=== PATIENT | female | born 1970 | race Caucasian/White ===

== ENCOUNTER 2017-03-06 21:30 | Inpatient (IN) ==
[2017-03-07] MEDS ORDERED: Naloxone 0.4 MG/ML INJ IVP PRN ×2 (00:09→00:10)
[2017-03-07] MEDS ORDERED: Ondansetron ODT 4 MG TAB.RAPDIS SL PRN (00:10)
[2017-03-07] MEDS ORDERED: Acetaminophen 325 MG TABLET PO PRN (00:10)
[2017-03-07 00:45] LABS: Basophils % 0.1 %; Hematocrit 43.5 % (35.3-44.9); Hemoglobin 14.6 g/dL (11.5-15.4); Immature Granulocytes % 0.3 % (0-4); Lymphocytes # 0.9 K/mcL (0.6-4.6); Lymphocytes % 11.8 %; Mean Corpuscular HGB Conc 33.6 g/dL (31.6-35.5); Mean Corpuscular Hemoglobin 32.2 pg (28.0-33.3); Mean Corpuscular Volume 95.8 fL (83.0-100.0); Mean Platelet Volume 8.8 fL (9.4-12.4); Monocytes # 0.4 K/mcL (0.0-1.3); Monocytes % 5.1 %; Neutrophils # 6.4 K/mcL (1.6-8.9); Platelet Count 325 K/mcL (140-400); Red Blood Count 4.54 M/mcL (3.82-4.97); Red Cell Distribution Width 12.8 % (11.5-14.5); Segmented Neutrophils % 82.7 %
[2017-03-07 00:59] LABS: Magnesium 1.7 mg/dL (1.6-2.6); Phosphorous 3.6 mg/dL (2.3-4.7)
[2017-03-07 01:01] LABS: Albumin 3.5 g/dL (3.5-5.0); Bilirubin,Total 0.6 mg/dL (0.2-1.2); Calcium 9.6 mg/dL (8.6-10.8); Globulin 3.6 g/dL (2.4-3.5); Potassium 3.1 mEq/L (3.5-4.5); Total Protein 7.1 g/dL (6.0-8.3)
--- NOTE | 2017-03-07 01:01 | Internal Med History&Physical ---
<Hunter Mora - Last Filed: 03/07/17 03:06> Date of Encounter: 03/07/17 Time of Encounter: 00:30 Assessment and Plan (1) Hypokalemia Current visit: Yes Status: Resolved Patient presented to [place] emergency department was found to have potassium of 2.2. Likely secondary to nausea and vomiting. Patient is a history of hypokalemia and takes oral potassium at home. Review of patient records demonstrates she has had a low of 2.6 in the past with nausea and vomiting. Continuing factors include the patient is taking Lasix at home. Concerning findings demonstrated on EKG with prolongation flattening of the T waves. - Patient has received IV potassium and oral potassium replacement. Plan: - Discontinue Lasix - Stat potassium level - Continue potassium replacement - Repeat EKG in a.m. - Nothing by mouth (2) Tachycardia Current visit: Yes Status: Acute Patient presented to [facility] was found to have an elevated heart rate the EKG performed was read as atrial fibrillation with rapid ventricular rate. After review of the EKG appears to be more of a supraventricular tachycardia. Ms. Figueroa has a history of paroxysmal atrial tachycardia and has been evaluated by cardiology last time of November 2015. For this episode she did receive Cardizem with slowing of her heart rate and she is currently normal sinus rhythm with a flattening and prolongation of the T-wave. - Patient received IV Cardizem resulting in slowing of heart rate. Last echocardiogram from 10/25/2016 demonstrates normal left ventricular systolic function with an LVEF of 60%, atypical septal motion consistent with prior cardiac surgeries. Indeterminant diastolic function normal right ventricular size and function. Mildly dilated right atrium. No significant valvular dysfunction. Plan: - Continue court monitor - Resolved electrolyte imbalance. - IV fluids for rehydration. - EKG in the morning. (3) Dehydration Current visit: Yes Status: Acute Dehydration secondary to nausea and vomiting. Laboratory findings correlate with hypokalemia, decreased chloride and acute kidney injury. Plan: - IV fluid rehydration (4) Acute and chronic respiratory failure Current visit: Yes Status: Acute Patient presents with acute on chronic respiratory failure. Patient has known COPD with her last pulmonary function test and May 2015. At that time her FEV1 was 50% predicted- qualifying for severe COPD. She only uses oxygen nasal cannula at night as needed. - Patient currently requiring 2.5-3 L nasal cane oxygen to maintain oxygen saturations greater than 90%. - Patient has subjective cough, increased sputum production, lethargy, diaphoresis. - Chest x-ray read as left lower lobe pneumonia. Plan: - Ceftriaxone IV - IV rehydration - Nasal cannula oxygen and wean as tolerated - DuoNeb scheduled - Scheduled albuterol nebulizer Qualifiers: Qualified Code(s): J96.20 - Acute and chronic respiratory failure, unspecified whether with hypoxia or hypercapnia (5) Pneumonia Current visit: Yes Status: Acute As mentioned above. Qualifiers: Pneumonia type: due to unspecified organism Laterality: left Lung location: lower lobe of lung Qualified Code(s): J18.1 - Lobar pneumonia, unspecified organism (6) COPD (chronic obstructive pulmonary disease) Current visit: Yes Status: Acute Patient has known COPD. Current daily smoker admits to smoking half a pack of cigarettes per day since the age of 8. 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 Patient has significant family history for lung cancer including her father, sister and grandmother - Patient not on chemotherapy or radiation at this time. (8) Depression Current visit: Yes Status: Chronic Stable, continue medications. Qualifiers: Depression Type: major depressive disorder Major depression recurrence: recurrent Active/Remission status: currently active Major depression episode severity: unspecified Qualified Code(s): F33.9 - Major depressive disorder, recurrent, unspecified (9) DVT prophylaxis Current visit: Yes Status: Acute Subcutaneous Lovenox. Internal Medicine - H&P: HPI Chief complaint: feeling sick Admitted From: Emergency Dept Plans for Post Hospital Care: Home History of present illness: Ms. Figueroa is a 46 year old female presented to [place] emergency department with nausea vomiting, abdominal discomfort and shortness of breath. Ms. Figueroa says that she was not feeling the greatest on Friday with starting to have some coughing lack of appetite. She went to a physician's appointment on Friday but did not mention that she was not feeling well at that time. After leaving the doctor's office she started feeling more nauseous, having episodes of vomiting abdominal discomfort, diaphoretic but no fevers but did have chills. She had frequent coughing with excess sputum reduction. She has felt more short of breath which all of these symptoms have continued and progressed since Friday. She has not found any relief in her symptoms but has tried to drink some Mountain Dew but would vomit it back up. She has not had much water or food intake. She has not tried any new medications. She has been trying to stay compliant with her prescribed medications. She did take her potassium and Lasix this evening. Without improvement in her symptoms she went to the [place] emergency department and was found to have a potassium of 2.2 was provided oral and IV potassium. An EKG was obtained she was found to have a rapid ventricular rates. He was thought to be atrial fibrillation with rapid ventricular rate and she was started on Cardizem. Her heart rate improved and she flipped back into a normal sinus rhythm. A chest x-ray was obtained which demonstrated left lower lobe consolidation concerning for pneumonia. Given her current condition she was transferred to our medical facility for further treatment. Past Med Surg Social Fam HX - Past Medical History Medical history: cancer, COPD, GERD, hypertension, other Psychiatric history: depression - Past Surgical History Surgical History: other - Social History Smoking Status: Current every day smoker Packs per day: 1/2 pack Smokeless Tobacco Status: No Alcohol use: none Drug use: none - Family History Father Living Status: Hx Family Cancer: Yes Hx Family Endocrine Disorder: Yes Mother Living Status: Hx Family Neurologic Disorders: Yes ("brain bleed") Sister Living Status: Hx Family Cancer: Yes Hx Family Neurologic Disorders: Yes (Migraines) Internal Medicine - H&P: Meds Quetiapine Fumarate [Seroquel] 400 mg PO HS 08/10/15 [History] Acetaminophen w/Cod 300-30 mg [Tylenol w/Codeine #3] 1 each PO Q4HR 09/11/16 [ History] Baclofen 20 mg PO TID 09/11/16 [History] Furosemide [Lasix] 20 mg PO QTUTHSA 03/07/17 [History] Allergies Penicillins Adverse Reaction (Verified 09/12/16 02:18) See Comments pt unknown of reaction. states she had a reaction as a child. prednisone Adverse Reaction (Verified 09/12/16 02:18) See Comments pt states it cause her to swell all over. All Systems PM: A 10-system review of systems was performed and is negative for pertinent findings except as documented above in the HPI. - Constitutional Constitutional: chills, excessive sweating, fatigue, night sweats, no fever(s) - EENT Eyes: no change in vision, no discharge, no pain, no photophobia Ears: no ear discharge, no ear pain, no tinnitus Nose, mouth and throat: no dysphagia, no nasal discharge, no neck pain, no sore throat - Cardiovascular Cardiovascular ROS IM: dyspnea, palpitations, no chest pain, no diaphoresis, no lightheadedness, no syncope - Respiratory Respiratory: cough, dyspnea, excessive phlegm production, no wheezing - Gastrointestinal Gastrointestinal: abdominal pain, nausea, vomiting, no diarrhea, no hematemesis , no hematochezia, no melena - Genitourinary Genitourinary: no change in urinary stream, no dysuria, no flank pain, no hematuria - Musculoskeletal Musculoskeletal ROS IM: no numbness, no tingling - Integumentary Integumentary IM: no rash, no unusual bruising - Neurological Neurological ROS: no confusion, no convulsions, no focal weakness, no numbness, no tingling, no tremor(s) - Hematologic/Lymphatic Hematologic/Lymphatic: no easy bruising - Constitutional Vitals: Temp Pulse Resp BP Pulse Ox 98.4 F 83 18 143/112 99 03/06/17 23:48 03/06/17 23:48 03/06/17 23:48 03/06/17 23:48 03/06/17 23:48 Exam: General: Patient alert, awake, oriented 3, interactive, in no acute distress, cachectic appearing HEENT: Normocephalic, atraumatic, pupils equal reactive to light, nasal cavity patent and open ,oral mucosa dry, neck supple trachea midline no palpable lymphadenopathy, no thyromegaly. Chest: Symmetric bilateral correlating with respiratory effort, effort nonlabored. Cardiac: Regular rate and rhythm, positive S1 and loud S2. no bruits appreciated bilateral carotids, Radial pulses 2+ bilateral, posterior tibial and dorsal pedal pulses 2+ bilateral. Respiratory: Reduced bronchovesicular breath sounds, mild crackles in left lower lung base and expiratory wheeze diffusely Abdomen: Soft, mild tenderness to palpation epigastric region, positive bowel sounds, no palpable masses appreciated on examination Extremities: Symmetric bilateral, bilateral lower extremities without erythema or edema patient moving all 4 extremities spontaneously. Neurologic: No focal deficits appreciated on examination. Face symmetric, muscle strength symmetric bilateral upper and lower extremities. Internal Med - H&P Results - Labs CBC & Chem 7: 03/07/17 00:35 03/07/17 00:35 Labs: Short CBC 03/07/17 Range/Units 00:35 WBC 7.8 (4.3-11.1) K/mcL Hgb 14.6 (11.5-15.4) g/dL Hct 43.5 (35.3-44.9) % Plt Count 325 (140-400) K/mcL Neutrophils # 6.4 (1.6-8.9) K/mcL <Chay Avery - Last Filed: 03/07/17 04:49> Date of Encounter: 03/07/17 Internal Medicine - H&P: HPI History of present illness: Ms. Figueroa is a 46 year old female Past Med Surg Social Fam HX - Past Surgical History Surgical History: other (VATS with lung resection, right upper lobe) All Systems PM: A 10-system review of systems was performed and is negative for pertinent findings except as documented above in the HPI. - Constitutional Vitals: Temp Pulse Resp BP Pulse Ox 97.7 F 88 16 127/102 97 03/07/17 03:31 03/07/17 03:31 03/07/17 03:31 03/07/17 03:31 03/07/17 03:31 Internal Med - H&P Results - Labs CBC & Chem 7: 03/07/17 00:35 03/07/17 00:35 Labs: Short CBC 03/07/17 Range/Units 00:35 WBC 7.8 (4.3-11.1) K/mcL Hgb 14.6 (11.5-15.4) g/dL Hct 43.5 (35.3-44.9) % Plt Count 325 (140-400) K/mcL Neutrophils # 6.4 (1.6-8.9) K/mcL BMP 03/07/17 00:35 Sodium 137 Potassium 3.1 L Chloride 87 L Carbon Dioxide 36 H BUN 25 H Creatinine 1.21 H Glucose 187 H Calcium 9.6 Liver Function 03/07/17 Range/Units 00:35 Total Bilirubin 0.6 (0.2-1.2) mg/dL AST 16 (5-34) Units/L ALT 8 (0-55) Units/L Alkaline Phosphatase 107 (38-126) Units/L Albumin 3.5 (3.5-5.0) g/dL - Diagnostic Studies Chest x-ray Status: image reviewed by me - Attending Attestation I personally interviewed and examined this patient and my medical decision- making was reviewed with the Resident Physician. I agree with the documented findings, disposition and treatment plan as described except that I am not convinced that patient has a pneumonia as reported by the [facility] official report, patient most likely has an acute bronchitis with a viral etiology which is causing an associated gastroenteritis with hypokalemia, in any case we will check procalcitonin and if elevated we will consider Abx. Chay Avery MD, MPH Hospitalist
[2017-03-07] MEDS: 0.9 % Sodium Chloride 1,000 ML IVC SCH ×3 (01:05→21:05)
[2017-03-07] MEDS ORDERED: Metoclopramide 10 MG/2 ML VIAL IVP PRN (02:31)
[2017-03-07] MEDS: Baclofen 10 MG TABLET PO SCH ×4 (03:08→21:05)
[2017-03-07] MEDS ORDERED: Ipratropium/Albuterol Neb 3 ML IH PRN ×2 (03:39→09:36)
[2017-03-07] MEDS ORDERED: Albuterol 2.5 MG/3 ML NEBULIZER IH PRN (03:39)
[2017-03-07] MEDS: *HR* Enoxaparin 40 MG/0.4 ML SYRINGE SQ SCH (05:49)
[2017-03-07] MEDS: *HR* Acetaminophen w/Cod 300-30 mg 1 TAB TABLET PO SCH ×6 (05:49→23:29)
[2017-03-07] MEDS: Ondansetron 4 MG/2 ML VIAL IVP SCH ×4 (05:50→23:22)
[2017-03-07 08:39] LABS: Basophils % 0.1 %; Hematocrit 41.3 % (35.3-44.9); Hemoglobin 13.3 g/dL (11.5-15.4); Immature Granulocytes % 0.3 % (0-4); Lymphocytes # 1.4 K/mcL (0.6-4.6); Lymphocytes % 15.4 %; Mean Corpuscular HGB Conc 32.2 g/dL (31.6-35.5); Mean Corpuscular Hemoglobin 31.1 pg (28.0-33.3); Mean Corpuscular Volume 96.7 fL (83.0-100.0); Monocytes # 0.7 K/mcL (0.0-1.3); Monocytes % 8.1 %; Platelet Count 304 K/mcL (140-400); Red Blood Count 4.27 M/mcL (3.82-4.97); Segmented Neutrophils % 76.1 %
[2017-03-07 08:50] LABS: BUN/Creatinine Ratio 23 (6-26); Blood Urea Nitrogen 22 mg/dL (7-20); Calcium 9.3 mg/dL (8.6-10.8); Carbon Dioxide 38 mEq/L (19-29); Chloride 89 mEq/L (98-109); Glucose 117 mg/dL (70-99); Osmolality,Calculated 288 (280-300); Phosphorous 3.1 mg/dL (2.3-4.7); Potassium 3.2 mEq/L (3.5-4.5); Sodium 137 mEq/L (136-145); eGFR For African Americans > 60 (> 60); eGFR For Non-African Americans > 60 (> 60)
[2017-03-07] MEDS: Levofloxacin 750 MG/150 ML 750 MG/150 ML BAG IVPB SCH (09:13)
--- NOTE | 2017-03-07 09:41 | Event Note ---
Date of Encounter: 03/07/17 Time of Encounter: 09:15 Patient is a 46y/o female with PMH Of COPD on LTOT, HTN, GERD who is admitted for hypokalemia, acute respiratory distress secondary to PNA. Patient seen and examined at bedside. Reports of feeling better compared to previous day but states she still feels weak. Currently saturating well on nasal cannula. Requesting breathing treatment. Patient reports of being an every day smoker and is not ready to quit at this time. Refused nicotine replacement therapy. -Hypokalemia: will supplement K and monitor electrolytes -LLL PNA: started Levofloxacin 750mg IV qdaily, f/u blood cultures. O2 supplementation, bronchodilator support -MADAI resolved -Vitals within acceptable range
[2017-03-07] MEDS: Ipratropium/Albuterol Neb 3 ML IH SCH ×5 (11:08→23:31)
[2017-03-08] MEDS: *HR* Acetaminophen w/Cod 300-30 mg 1 TAB TABLET PO SCH ×5 (04:08→21:13)
[2017-03-08] MEDS: Ipratropium/Albuterol Neb 3 ML IH SCH ×6 (04:12→23:25)
[2017-03-08] MEDS: *HR* Enoxaparin 40 MG/0.4 ML SYRINGE SQ SCH (05:20)
[2017-03-08] MEDS: Ondansetron 4 MG/2 ML VIAL IVP SCH ×3 (05:21→18:57)
[2017-03-08 06:06] LABS: Basophils % 0.4 %; Eosinophils % 0.7 %; Hematocrit 31.6 % (35.3-44.9); Immature Granulocytes % 0.2 % (0-4); Lymphocytes # 1.7 K/mcL (0.6-4.6); Lymphocytes % 31.5 %; Mean Corpuscular HGB Conc 31.6 g/dL (31.6-35.5); Mean Corpuscular Hemoglobin 32.5 pg (28.0-33.3); Mean Corpuscular Volume 102.6 fL (83.0-100.0); Mean Platelet Volume 9.1 fL (9.4-12.4); Monocytes # 0.5 K/mcL (0.0-1.3); Monocytes % 8.6 %; Neutrophils # 3.2 K/mcL (1.6-8.9); Platelet Count 230 K/mcL (140-400); Red Blood Count 3.08 M/mcL (3.82-4.97); Red Cell Distribution Width 13.2 % (11.5-14.5); Segmented Neutrophils % 58.6 %
[2017-03-08 06:28] LABS: BUN/Creatinine Ratio 15 (6-26); Blood Urea Nitrogen 13 mg/dL (7-20); Calcium 8.2 mg/dL (8.6-10.8); Carbon Dioxide 32 mEq/L (19-29); Chloride 104 mEq/L (98-109); Glucose 135 mg/dL (70-99); Osmolality,Calculated 288 (280-300); Phosphorous 2.3 mg/dL (2.3-4.7); Sodium 138 mEq/L (136-145); eGFR For African Americans > 60 (> 60); eGFR For Non-African Americans > 60 (> 60)
[2017-03-08] MEDS: 0.9 % Sodium Chloride 1,000 ML IVC SCH (07:02)
[2017-03-08] MEDS ORDERED: Potassium Chloride 40 MEQ, Lidocaine 1% 2 ML in D5% in Water 500 ML IVPB ONE (07:50)
[2017-03-08] MEDS ORDERED: Magnesium Sulfate 2 GM in D5% in Water 100 ML IVPB ONE (07:51)
[2017-03-08] MEDS: Baclofen 10 MG TABLET PO SCH ×3 (10:04→21:20)
--- NOTE | 2017-03-08 12:19 | Internal Med Progress Note ---
Date of Encounter: 03/08/17 Time of Encounter: 12:10 - Assessment and plan (1) Acute and chronic respiratory failure Current Visit: Yes Status: Acute Assessment and plan: Secondary to LLL PNA continue IV abx f/u blood and sputum cultures O2 supplementation monitor O2 sat, goal O2 sat: 89-92% Mucinex prn cough Qualifiers: Respiratory failure complication: unspecified whether with hypoxia or hypercapnia Qualified Code(s): J96.20 - Acute and chronic respiratory failure , unspecified whether with hypoxia or hypercapnia (2) Pneumonia Current Visit: Yes Status: Acute Assessment and plan: as listed above Qualifiers: Pneumonia type: due to unspecified organism Laterality: left Lung location: lower lobe of lung Qualified Code(s): J18.1 - Lobar pneumonia, unspecified organism (3) Electrolyte abnormality Current Visit: Yes Status: Acute Assessment and plan: Hypokalemia and Hypomagnesemia K and Mg supplemented will continue to monitor electrolytes and replace as needed (4) Tobacco abuse Current Visit: Yes Status: Acute Assessment and plan: smoking cessation counseling provided patient not ready to quit at this time refused nicotine supplementation (5) COPD (chronic obstructive pulmonary disease) Current Visit: Yes Status: Acute Assessment and plan: not in acute exacerbation continue bronchodilator support as needed Qualifiers: COPD type: unspecified COPD Qualified Code(s): J44.9 - Chronic obstructive pulmonary disease, unspecified (6) DVT prophylaxis Current Visit: Yes Status: Acute Assessment and plan: Lovenox SQ - Subjective Interval history: Patient seen and examined at bedside. Resting in bed and reports of feeling better compared to previous day. Reports of productive cough. Denies any discomfort at this time. No overnight issues reported. - Constitutional Vitals: Temp Pulse Resp BP Pulse Ox 98.4 F 104 16 114/69 97 03/08/17 11:13 03/08/17 10:15 03/08/17 11:15 03/08/17 11:13 03/08/17 11:15 General appearance: Present: A&O X 3, no acute distress, underweight, answers questions appropriately - Head Head exam: Present: atraumatic, normocephalic - Eye Eye exam: Present: conjuntiva pink, sclera anicteric - Respiratory Respiratory exam: Absent: respiratory distress, wheezes Additional comments: coarse breath sounds diffusely - Cardiovascular Cardiovascular exam: Present: RRR, +S1, +S2. Absent: diastolic murmur, gallop, rubs, systolic murmur - GI/Abdominal GI/Abdominal exam: Present: normal bowel sounds, soft, no peritoneal signs. Absent: distended, tenderness - Extremities Exam Extremities exam: Present: warm, radial pulses palpable and symetrical. Absent : calf tenderness, cyanotic, pedal edema - Neurological Exam Neurological exam: Present: alert, oriented X3 - Psychiatric Psychiatric exam: Present: normal affect, normal mood Internal Medicine: Result - Labs CBC & Chem 7: 03/08/17 05:44 03/08/17 05:44 Labs: Short CBC 03/08/17 Range/Units 05:44 WBC 5.5 (4.3-11.1) K/mcL Hgb 10.0 L D (11.5-15.4) g/dL Hct 31.6 L (35.3-44.9) % Plt Count 230 (140-400) K/mcL Neutrophils # 3.2 (1.6-8.9) K/mcL BMP 03/08/17 05:44 Sodium 138 Potassium 3.0 L Chloride 104 D Carbon Dioxide 32 H BUN 13 Creatinine 0.86 Glucose 135 H Calcium 8.2 L Consult Discharge Plan - Plan Referrals: Daljit Auguste, [employer] [Primary Care Provider] -
[2017-03-08] MEDS ORDERED: GuaiFENesin/Dextromethorphan TABLET PO PRN (12:20)
[2017-03-08] MEDS ORDERED: Nitroglycerin 0.4 MG TAB.SUBL SL PRN (14:06)
[2017-03-08] MEDS ORDERED: *HR* Heparin 5,000 UNIT/ML VIAL IVP PRN ×2 (14:07)
[2017-03-08] MEDS ORDERED: *HR* Heparin 5,000 UNIT/ML VIAL IVP ONE (14:07)
[2017-03-08 14:16] LABS: Hemoglobin 11.3 g/dL (11.5-15.4); Mean Corpuscular HGB Conc 30.5 g/dL (31.6-35.5); Mean Corpuscular Hemoglobin 31.7 pg (28.0-33.3); Mean Corpuscular Volume 103.9 fL (83.0-100.0); Mean Platelet Volume 9.3 fL (9.4-12.4); Platelet Count 276 K/mcL (140-400); Red Blood Count 3.56 M/mcL (3.82-4.97); Red Cell Distribution Width 13.3 % (11.5-14.5)
[2017-03-08 14:26] LABS: Activated Partial Thrombo Time 37.6 Seconds (26.0-36.0)
[2017-03-08] MEDS: Aspirin Enteric Coated 325 MG Tablet PO SCH (14:48)
[2017-03-08] MEDS: Heparin 25,000 UNIT/500 ML D5W 25,000 UNIT/500 ML MLS IVC SCH (16:08)
[2017-03-08] MEDS: *HR* Morphine 2 MG/ML SYRINGE IVP PRN ×2 (16:35→19:25)
[2017-03-09] MEDS: Ondansetron 4 MG/2 ML VIAL IVP SCH ×2 (01:02→05:39)
[2017-03-09] MEDS: *HR* Acetaminophen w/Cod 300-30 mg 1 TAB TABLET PO SCH ×3 (01:02→08:50)
[2017-03-09] MEDS: Ipratropium/Albuterol Neb 3 ML IH SCH ×6 (03:59→23:18)
[2017-03-09 04:25] LABS: Basophils % 0.3 %; Eosinophils # 0.1 K/mcL (0.0-0.6); Hematocrit 33.5 % (35.3-44.9); Hemoglobin 10.3 g/dL (11.5-15.4); Immature Granulocytes % 0.3 % (0-4); Lymphocytes # 1.9 K/mcL (0.6-4.6); Lymphocytes % 27.4 %; Mean Corpuscular HGB Conc 30.7 g/dL (31.6-35.5); Mean Corpuscular Hemoglobin 31.6 pg (28.0-33.3); Mean Corpuscular Volume 102.8 fL (83.0-100.0); Mean Platelet Volume 8.9 fL (9.4-12.4); Monocytes # 0.6 K/mcL (0.0-1.3); Monocytes % 8.3 %; Neutrophils # 4.3 K/mcL (1.6-8.9); Platelet Count 235 K/mcL (140-400); Red Blood Count 3.26 M/mcL (3.82-4.97); Red Cell Distribution Width 13.3 % (11.5-14.5); Segmented Neutrophils % 61.7 %
[2017-03-09 04:37] LABS: BUN/Creatinine Ratio 13 (6-26); Blood Urea Nitrogen 9 mg/dL (7-20); Calcium 8.5 mg/dL (8.6-10.8); Carbon Dioxide 33 mEq/L (19-29); Chloride 105 mEq/L (98-109); Glucose 103 mg/dL (70-99); Magnesium 1.5 mg/dL (1.6-2.6); Osmolality,Calculated 289 (280-300); Phosphorous 2.6 mg/dL (2.3-4.7); Potassium 3.1 mEq/L (3.5-4.5); Sodium 140 mEq/L (136-145); eGFR For African Americans > 60 (> 60); eGFR For Non-African Americans > 60 (> 60)
[2017-03-09] MEDS ORDERED: Magnesium Sulfate 1 GM in D5% in Water 100 ML IVPB ONE (08:39)
[2017-03-09] MEDS: Aspirin Enteric Coated 325 MG Tablet PO SCH (09:01)
[2017-03-09] MEDS: Levofloxacin 750 MG/150 ML 750 MG/150 ML BAG IVPB SCH (09:01)
[2017-03-09] MEDS: Baclofen 10 MG TABLET PO SCH ×3 (09:01→20:57)
[2017-03-09] MEDS: *HR* Morphine 2 MG/ML SYRINGE IVP PRN (09:55)
[2017-03-09] MEDS ORDERED: Ondansetron 4 MG/2 ML VIAL IVP PRN (10:04)
--- NOTE | 2017-03-09 10:26 | Internal Med Progress Note ---
Date of Encounter: 03/09/17 Time of Encounter: 10:26 - Assessment and plan (1) Acute pulmonary embolism Current Visit: Yes Status: Acute Assessment and plan: CTA chest consistent with right lower lobe segmental PE will continue heparin gtt elevated TNI secondary to acute PE awaiting 2D echo and b/l LE venous doppler will obtain cardiology consultation depending on the echo results currently pain appropriately controlled and saturating well on nasal cannula hematology consultation requested for emt intermediate anticoagulation therapy patient reports history of blood clots with her family members and has a history of lupus (unclear of the lupus variant) Qualifiers: Pulmonary embolism type: other Acute cor pulmonale presence: without acute cor pulmonale Qualified Code(s): I26.99 - Other pulmonary embolism without acute cor pulmonale (2) Acute and chronic respiratory failure Current Visit: Yes Status: Acute Assessment and plan: Secondary to LLL PNA CTA chest reported collapse of left lower lobe possibly secondary to mucous plugging will obtain consultation with respiratory therapy to initiate pulmonary toileting continue IV abx f/u blood and sputum cultures O2 supplementation monitor O2 sat, goal O2 sat: 89-92% Mucinex prn cough will obtain repeat CXR in am clinically improving compared to previous day Qualifiers: Respiratory failure complication: unspecified whether with hypoxia or hypercapnia Qualified Code(s): J96.20 - Acute and chronic respiratory failure , unspecified whether with hypoxia or hypercapnia (3) Pneumonia Current Visit: Yes Status: Acute Assessment and plan: as listed above Qualifiers: Pneumonia type: due to unspecified organism Laterality: left Lung location: lower lobe of lung Qualified Code(s): J18.1 - Lobar pneumonia, unspecified organism (4) Electrolyte abnormality Current Visit: Yes Status: Acute Assessment and plan: Hypokalemia and Hypomagnesemia K and Mg supplemented will continue to monitor electrolytes and replace as needed (5) Tobacco abuse Current Visit: Yes Status: Acute Assessment and plan: smoking cessation counseling provided patient not ready to quit at this time refused nicotine supplementation (6) COPD (chronic obstructive pulmonary disease) Current Visit: Yes Status: Acute Assessment and plan: not in acute exacerbation continue bronchodilator support as needed Qualifiers: COPD type: unspecified COPD Qualified Code(s): J44.9 - Chronic obstructive pulmonary disease, unspecified (7) DVT prophylaxis Current Visit: Yes Status: Acute Assessment and plan: anticoagulated with heparin gtt - Subjective Interval history: Pt seen and examined at bedside. Sitting in bed and reports of feeling better compared to previous day. CTA chest consistent with right lower lobe segmental pulmonary embolism with left lower lobe collapse, possibly secondary to mucous plugging. Reports the pain being better controlled however requesting Percocet rather than the morphine for pain control. HR currently controlled and saturating well on nasal cannula. No overnight issues reported - Constitutional Vitals: Temp Pulse Resp BP Pulse Ox 98 F 80 14 114/74 98 03/09/17 07:54 03/09/17 07:54 03/09/17 07:54 03/09/17 07:54 03/09/17 07:54 General appearance: Present: A&O X 3, no acute distress, underweight, answers questions appropriately - Head Head exam: Present: atraumatic, normocephalic - Eye Eye exam: Present: conjuntiva pink, sclera anicteric - Respiratory Respiratory exam: Absent: respiratory distress, wheezes Additional comments: equal air entry bilaterally - Cardiovascular Cardiovascular exam: Present: RRR, +S1, +S2. Absent: diastolic murmur, gallop, rubs, systolic murmur - GI/Abdominal GI/Abdominal exam: Present: normal bowel sounds, soft, no peritoneal signs. Absent: distended, tenderness - Extremities Exam Extremities exam: Present: warm, radial pulses palpable and symetrical. Absent : calf tenderness, pedal edema - Neurological Exam Neurological exam: Present: alert, oriented X3 - Psychiatric Psychiatric exam: Present: normal affect, normal mood Internal Medicine: Result - Labs CBC & Chem 7: 03/09/17 04:04 03/09/17 04:04 Labs: Short CBC 03/08/17 03/09/17 Range/Units 13:11 04:04 WBC 8.2 7.0 (4.3-11.1) K/mcL Hgb 11.3 L 10.3 L (11.5-15.4) g/dL Hct 37.0 33.5 L (35.3-44.9) % Plt Count 276 235 (140-400) K/mcL Neutrophils # 4.3 (1.6-8.9) K/mcL BMP 03/09/17 04:04 Sodium 140 Potassium 3.1 L Chloride 105 Carbon Dioxide 33 H BUN 9 Creatinine 0.70 Glucose 103 H Calcium 8.5 L Cardiac Enzymes 03/08/17 03/09/17 Range/Units 13:11 04:04 Troponin I 0.33 H* 0.19 H* (0-0.03) ng/mL - ABG Interpretation ABG results: PT/INR, D-dimer PT 11.0 Seconds (9.4-12.1) 03/08/17 13:11 - Impressions Impressions Chest CTA 03/08/17 12:52 IMPRESSION: 1. Right lower lobe segmental pulmonary embolus. RV to LV ratio is within normal range. 2. Left lower lobe collapse, possibly secondary to mucous plugging. 3. Small bilateral pleural effusions with compressive atelectasis of the right lower lobe. Findings were discussed with Nerissa Gary at 3:46 pm on 03/08/2017. D/ / 03/08/2017 15:48:02 Joey Soto MD / ginny Interpreting Provider: Joey Soto MD Consult Discharge Plan - Plan Referrals: Daljit Augutse, [employer] [Primary Care Provider] -
--- NOTE | 2017-03-09 12:44 | Oncology Inp Consult Note ---
Date of Encounter: 03/09/17 Time of Encounter: 12:18 Assessment and Plan (1) Acute pulmonary embolism Status: Acute Assessment and plan: Clinically improving while receiving full anticoagulation with IV heparin. I'd recommend to continue IV heparin and transition to coumadin. I would prefer heparin over lovenox due to the risk of bleeding associated with APS. - In view of her history of positive lupus anticoagulant ( once documented here in 03/03/15, and another reported by the patient, apparently tested last year by her primary freelance operator Dr. 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 Although her current episode of PE seems to be provoked ( in the settings of hospitalization due to LLL PNA), she may need watermaster anticoagulation in view of her positive LAC and possible APS. She will need repeated work up as outpatient ( not here in view that heparin can induce false positive results) while anticoagulated with coumadin. Recommended test included anti cardiolipin ab IgM, IgG; Beta 2 glyoprotein, LAC, APTT, INR. - New oral anticoagulants are not an option in view of her low BMI and possible APS. superintendent container terminal lovenox is not the best option due to low BMI and risk of osteoporosis. She was in agreement to receive coumadin and monitor her blood to keep an INR level between 2-3. She would prefer having her PCP following her INR levels. she was instructed to make an appointment with her primary freelance operator Dr. Hawkins to follow up on those labs and discuss the final recommendations for duration of anticoagulation ( based on my assessment she will need at least 3-6 months of full anticoagulation with coumadin, although this is an area of controversy and alf anticoagulation may be a reasonable option too). - I'd suggest to continue baby asa, but discontinue it down the road if she experiences significant bleeding events. -Ok to discontinue heparin IV once she has completed 5 or more days on heparin AND her INR is 2 or above in 2 consecutive days. Qualifiers: Pulmonary embolism type: other Acute cor pulmonale presence: without acute cor pulmonale Qualified Code(s): I26.99 - Other pulmonary embolism without acute cor pulmonale Code(s): I26.99 - Other pulmonary embolism without acute cor pulmonale SNOMED Code(s): 32556500, 92437167 - Data of Consult Requesting Physician: Nerissa Gary MD Primary Care Provider: Daljit Auguste CNP - Consult Narrative Reason for consult: management of recent PE. Hypercoagulable work up History of present illness: Ms. Figueroa is a 46 year old female with history of positive lupus anticoagulant, COPD, early stage lung cancer s/p right upper lobectomy presenting with abdominal pain, nausea and found to have CXR findings consisting with LLL PNA for which she was stated on broad spectrum IV antibiotics. During the course of he hospitalization she developed sinus tachycardia with HR in the 140s along with pleuritc chest pain while receiving DVT prophylaxis with lovenox SQ. A stat CT chest revealed a segmental PE in the RLL, subsequently she was started on heparin drip. She reports improvement of her symptoms while on full anticoagulation with IV heparin, denies bleeding events. Ms. El reports a personal history of positive lupus anticoagulant. Her work up was initiated back in 2014 when she was found to have a prolonged APTT during the pre surgical evaluation for her lung cancer resection. At that time she was found to have positive lupus anticoagulant, Prolonged APTT in mid 60s, elevated Beta 2 microglobulin IgM ( 13.8 with normal values of Beta 2 glycoprotein of IgG, elevated values of IgM anti cardiolipin antibody IgG ( 24) and IgM ( 34), normal NABEEL. The lab interpretation of her LAC in March 03, 2015 was consistent with the presence of lupus anti coagulant. She reports following up with her freelance operator Dr. Hawkins ( at [facility]) and being recommended to take baby aspirin ( although she endorsed not being 100 percent complaint with that recommendation). She reports a family history of thrombosis : her mother had a clot in her legs in the settings of PVD, and her sister had a clot in her lungs, but as the result of lung cancer.She denies a history of CVA or prior DVT/PT. She reports that she was seen by her oncologist early this year and her lung cancer was thought to be in remission. her CT angio does not report findings suggestive of lung cancer relapse. She denies any recent bleeding events. Past Med Surg Social Fam HX - Past Medical History Medical history: cancer, COPD, GERD, hypertension, other Psychiatric history: depression - Past Surgical History Surgical History: other (VATS with lung resection, right upper lobe) - Social History Smoking Status: Current every day smoker Packs per day: 1/2 pack Smokeless Tobacco Status: No Alcohol use: none Drug use: none - Family History Father Living Status: Hx Family Cancer: Yes Hx Family Endocrine Disorder: Yes Mother Living Status: Hx Family Neurologic Disorders: Yes ("brain bleed") Sister Living Status: Hx Family Cancer: Yes Hx Family Neurologic Disorders: Yes (Migraines) Medications and Allergies Quetiapine Fumarate [Seroquel] 400 mg PO HS 08/10/15 [History] Baclofen 20 mg PO TID 09/11/16 [History] Acetaminophen with Codeine [Acetaminophen-Cod #4 Tablet] 1 tab PO Q4-6H PRN [History] Albuterol Sulfate [Ventolin Hfa] 2 puff IH Q4H PRN 03/07/17 [History] Furosemide [Lasix] 20 mg PO QTUTHSA 03/07/17 [History] Ipratropium/Albuterol Neb [Duoneb] 3 ml IH DAILY PRN 03/07/17 [History] Metoprolol XL (24 HR) Succ [Toprol Xl] 25 mg PO DAILY 03/07/17 [History] Potassium Chloride [Klor-Con 10] 10 meq PO TUTHSA 03/07/17 [History] Allergies Penicillins Adverse Reaction (Verified 03/07/17 08:39) See Comments pt unknown of reaction. states she had a reaction as a child. prednisone Adverse Reaction (Verified 03/07/17 08:39) See Comments pt states it cause her to swell all over. Constitutional: Present: fatigue Cardiovascular: Present: chest pain, dyspnea, rapid heart rate Respiratory: Present: dyspnea, pain on inspiration. Absent: hemoptysis, chest congestion Gastrointestinal: Present: abdominal pain. Absent: hematemesis, hematochezia Neurological: Absent: behavioral changes, lack of coordination, weakness Psychiatric: Absent: behavioral changes Oncology - Exam - Constitutional Vitals: Temp Pulse Resp BP Pulse Ox 98 F 86 16 121/77 94 03/09/17 12:06 03/09/17 12:06 03/09/17 12:06 03/09/17 12:06 03/09/17 12:06 - Head Head exam: Present: normal inspection - ENT ENT exam: Present: normal oropharynx - Neck Neck exam: Present: normal inspection - Respiratory Respiratory exam: Present: CTAB - Cardiovascular Cardiovascular exam: Present: +S1 - GI/Abdominal GI/Abdominal exam: Present: normal bowel sounds. Absent: guarding, mass - Extremities Exam Extremities exam: Present: normal inspection. Absent: tenderness - Neurological Exam Neurological exam: Present: oriented X3. Absent: no focal deficits - Psychiatric Psychiatric exam: Present: normal affect, normal mood - Skin Skin exam: Present: normal color Oncology - Results - Labs Labs: Short CBC 03/08/17 03/09/17 Range/Units 13:11 04:04 WBC 8.2 7.0 (4.3-11.1) K/mcL Hgb 11.3 L 10.3 L (11.5-15.4) g/dL Hct 37.0 33.5 L (35.3-44.9) % Plt Count 276 235 (140-400) K/mcL Neutrophils # 4.3 (1.6-8.9) K/mcL BMP 03/09/17 04:04 Sodium 140 Potassium 3.1 L Chloride 105 Carbon Dioxide 33 H BUN 9 Creatinine 0.70 Glucose 103 H Calcium 8.5 L Cardiac Enzymes 03/08/17 03/09/17 Range/Units 13:11 04:04 Troponin I 0.33 H* 0.19 H* (0-0.03) ng/mL Consult Discharge Plan - Plan Referrals: Daljit Auguste EARLY LEARNING TEACHER [Primary Care Provider] -
[2017-03-09] MEDS: *HR* OxyCODONE/APAP 5/325 TABLET PO PRN ×3 (13:50→23:06)
[2017-03-10] MEDS: Ipratropium/Albuterol Neb 3 ML IH SCH ×6 (03:29→23:37)
[2017-03-10 04:02] LABS: Basophils % 0.3 %; Eosinophils # 0.2 K/mcL (0.0-0.6); Eosinophils % 2.9 %; Hematocrit 30.7 % (35.3-44.9); Hemoglobin 9.2 g/dL (11.5-15.4); Immature Granulocytes % 0.2 % (0-4); Lymphocytes # 1.8 K/mcL (0.6-4.6); Lymphocytes % 26.7 %; Mean Corpuscular Hemoglobin 31.2 pg (28.0-33.3); Mean Corpuscular Volume 104.1 fL (83.0-100.0); Mean Platelet Volume 9.1 fL (9.4-12.4); Monocytes # 0.5 K/mcL (0.0-1.3); Monocytes % 6.9 %; Neutrophils # 4.2 K/mcL (1.6-8.9); Platelet Count 226 K/mcL (140-400); Red Blood Count 2.95 M/mcL (3.82-4.97); Red Cell Distribution Width 13.5 % (11.5-14.5)
[2017-03-10 04:19] LABS: BUN/Creatinine Ratio 18 (6-26); Blood Urea Nitrogen 14 mg/dL (7-20); Calcium 8.9 mg/dL (8.6-10.8); Carbon Dioxide 29 mEq/L (19-29); Chloride 105 mEq/L (98-109); Glucose 108 mg/dL (70-99); Magnesium 1.6 mg/dL (1.6-2.6); Osmolality,Calculated 287 (280-300); Phosphorous 2.7 mg/dL (2.3-4.7); Sodium 138 mEq/L (136-145); eGFR For African Americans > 60 (> 60); eGFR For Non-African Americans > 60 (> 60)
[2017-03-10 04:37] LABS: Potassium 4.2 mEq/L (3.5-4.5)
[2017-03-10] MEDS: *HR* OxyCODONE/APAP 5/325 TABLET PO PRN ×5 (05:00→21:07)
[2017-03-10] MEDS: Aspirin Enteric Coated 325 MG Tablet PO SCH (07:43)
[2017-03-10] MEDS: Baclofen 10 MG TABLET PO SCH ×3 (07:43→21:08)
--- NOTE | 2017-03-10 10:26 | Internal Med Progress Note ---
Date of Encounter: 03/10/17 Time of Encounter: 10:24 - Assessment and plan (1) Acute pulmonary embolism Current Visit: Yes Status: Acute Assessment and plan: CTA chest consistent with right lower lobe segmental PE will continue heparin gtt elevated TNI secondary to acute PE 2D echo: Normal LV systolic function, LVEF of 55%, atypical septal motion consistent with prior cardiac surgery (pt has history of congenital heart disease s/p Cardiac surgery at age 1), no valvular dysfunction reported LE dopplers prelim negative for DVT Hematology evaluation appreciated pt to be started on coumadin and bridge with heparin monitor INR, goal INR: 2-3 Qualifiers: Pulmonary embolism type: other Acute cor pulmonale presence: without acute cor pulmonale Qualified Code(s): I26.99 - Other pulmonary embolism without acute cor pulmonale (2) Acute and chronic respiratory failure Current Visit: Yes Status: Acute Assessment and plan: Secondary to LLL PNA CTA chest reported collapse of left lower lobe possibly secondary to mucous plugging continue pulmonary toileting Prelim blood cultures negative prelmi sputum cultures positive for gram negative omaira will switch to PO Levaquin and renally dose abx. Will change therapy as per culture results O2 supplementation monitor O2 sat, goal O2 sat: 89-92% Mucinex prn cough will follow up repeat CXR clinically improving compared to previous day Qualifiers: Respiratory failure complication: unspecified whether with hypoxia or hypercapnia Qualified Code(s): J96.20 - Acute and chronic respiratory failure , unspecified whether with hypoxia or hypercapnia (3) Pneumonia Current Visit: Yes Status: Acute Assessment and plan: as listed above Qualifiers: Pneumonia type: due to unspecified organism Laterality: left Lung location: lower lobe of lung Qualified Code(s): J18.1 - Lobar pneumonia, unspecified organism (4) Electrolyte abnormality Current Visit: Yes Status: Resolved (5) Tobacco abuse Current Visit: Yes Status: Acute Assessment and plan: smoking cessation counseling provided patient not ready to quit at this time refused nicotine supplementation (6) COPD (chronic obstructive pulmonary disease) Current Visit: Yes Status: Acute Assessment and plan: not in acute exacerbation continue bronchodilator support as needed Qualifiers: COPD type: unspecified COPD Qualified Code(s): J44.9 - Chronic obstructive pulmonary disease, unspecified (7) DVT prophylaxis Current Visit: Yes Status: Acute Assessment and plan: anticoagulated with heparin gtt - Subjective Interval history: Pt seen and examined at bedside. Reports of feeling better. no overnight issues reported - Constitutional Vitals: Temp Pulse Resp BP Pulse Ox 98.3 F 79 18 118/79 95 03/10/17 07:20 03/10/17 07:20 03/10/17 08:06 03/10/17 07:20 03/10/17 08:06 General appearance: Present: A&O X 3, no acute distress, underweight, answers questions appropriately - Head Head exam: Present: atraumatic, normocephalic - Eye Eye exam: Present: conjuntiva pink, sclera anicteric - Respiratory Respiratory exam: Absent: respiratory distress, wheezes - Cardiovascular Cardiovascular exam: Present: RRR, +S1, +S2. Absent: diastolic murmur, gallop, rubs, systolic murmur - GI/Abdominal GI/Abdominal exam: Present: normal bowel sounds, soft, no peritoneal signs. Absent: distended, tenderness - Extremities Exam Extremities exam: Present: warm, radial pulses palpable and symetrical. Absent : calf tenderness, cyanotic, pedal edema - Neurological Exam Neurological exam: Present: alert, oriented X3 - Psychiatric Psychiatric exam: Present: normal affect, normal mood Internal Medicine: Result - Labs CBC & Chem 7: 03/10/17 03:44 03/10/17 03:44 Labs: Short CBC 03/10/17 Range/Units 03:44 WBC 6.7 (4.3-11.1) K/mcL Hgb 9.2 L (11.5-15.4) g/dL Hct 30.7 L (35.3-44.9) % Plt Count 226 (140-400) K/mcL Neutrophils # 4.2 (1.6-8.9) K/mcL BMP 03/10/17 03:44 Sodium 138 Potassium 4.2 D Chloride 105 Carbon Dioxide 29 BUN 14 Creatinine 0.76 Glucose 108 H Calcium 8.9 - ABG Interpretation ABG results: PT/INR, D-dimer PT 11.0 Seconds (9.4-12.1) 03/08/17 13:11 Consult Discharge Plan - Plan Referrals: Daljit Auguste, DIABETES NURSE [Primary Care Provider] -
[2017-03-10 10:28] LABS: Prothrombin Time 11.5 Seconds (9.4-12.1)
[2017-03-10 10:29] LABS: INR 1.1
[2017-03-10] MEDS: Heparin 25,000 UNIT/500 ML D5W 25,000 UNIT/500 ML MLS IVC SCH (11:04)
--- NOTE | 2017-03-10 12:04 | Venous Imaging Report ---
LE Venous Duplex Patient Name:Tamika Figueroa Order Number:[id number] Procedure Date:03/09/2017 Date:1970Age:46 yrs Gender:Female Location:[facility] Room #: 2NE34 Health Evaluator:Marsha Child RVT, RDCS Referring MD:Nerissa Gary MD time stamp assembler:Daljit Auguste, SPECIMEN BOSS Reading MD:Omid Paredes MD , FACS Primary Indications:PE Secondary Indications: Impressions: Bilateral lower extremity: normal superficial and deep exam. Recommendations: Test completed on 03/09/2017 at 11:52:00 am. Critical findings reported to marilu QUINN in person at 11:54:02 am on 03/09/2017 by Marsha Child RVT, RDCS. Findings Venous Duplex Results: Right: Venous imaging of the lower extremity reveals full patency and normal vessel compressibility of the right distal iliac, right common femoral, right superficial femoral, right popliteal, right posterior tibial, right peroneal, right great saphenous and right lesser saphenous. Doppler signals in the evaluated veins were normal. Left: Venous imaging of the lower extremity reveals full patency and normal vessel compressibility of the left distal iliac, left common femoral, left superficial femoral, left popliteal, left posterior tibial, left peroneal, left great saphenous and left lesser saphenous. Doppler signals in the evaluated veins were normal. Prior Study: No prior study available for comparison. Lower Extremity Venous Duplex Side Vein Compress Spontaneous Flow Augment Diameter (cm) Depth (cm) Right Distal Iliac Normal Yes Phasic Yes Right Common Femoral Normal Yes Phasic Yes Right Superficial Femoral Normal Yes Phasic Yes Right Popliteal Normal Yes Phasic Yes Right Posterior Tibial Normal Yes Phasic Yes Right Peroneal Normal Yes Phasic Yes Right Great Saphenous Normal Yes Phasic Yes Right Lesser Saphenous Normal Yes Phasic Yes Left Distal Iliac Normal Yes Phasic Yes Left Common Femoral Normal Yes Phasic Yes Left Superficial Femoral Normal Yes Phasic Yes Left Popliteal Normal Yes Phasic Yes Left Posterior Tibial Normal Yes Phasic Yes Left Peroneal Normal Yes Phasic Yes Left Great Saphenous Normal Yes Phasic Yes Left Lesser Saphenous Normal Yes Phasic Yes Updated by Omid Paredes MD, FACS on 03/10/2017 11:59:22 AM Omid Paredes MD electronically signed on 03/10/2017 11:59:38 AM with status of Final
--- NOTE | 2017-03-10 13:26 | Electrocardiograph Report ---
[place] [id number] Test Date: 2017-03-08 Pat Name: Tamika Figueroa Department: 111 Room: 2NE34 Gender: F Act Tutor: : 1970 Requested By: Nerissa Gary Order Number: [id number] Reading MD: Elbert Maldonado MD Measurements Intervals Hay Rate: 137 P: -18 MN: 123 QRS: 142 QRSD: 94 T: 163 QT: 329 QTc: 409 Interpretive Statements SVT PROBABLY SINUS TACHYCARDIA Poor R wave progression Electronically Signed On 03-10-2017 13:25:18 EDT by Elbert Maldonado MD
[2017-03-10] MEDS: levoFLOXacin 750 MG TABLET PO SCH (14:19)
[2017-03-10] MEDS ORDERED: Acetaminophen 325 MG TABLET PO PRN (15:19)
[2017-03-10] MEDS ORDERED: Warfarin perPT PO PRN (18:00)
[2017-03-10] MEDS ORDERED: *HR* Warfarin 5 MG TABLET PO ONE (18:00)
[2017-03-11] MEDS: *HR* OxyCODONE/APAP 5/325 TABLET PO PRN ×3 (03:17→12:42)
[2017-03-11] MEDS: Ipratropium/Albuterol Neb 3 ML IH SCH ×5 (04:20→20:29)
[2017-03-11 05:34] LABS: Basophils % 0.4 %; Eosinophils # 0.1 K/mcL (0.0-0.6); Eosinophils % 2.7 %; Hematocrit 29.7 % (35.3-44.9); Hemoglobin 9.2 g/dL (11.5-15.4); INR 1.1; Immature Granulocytes % 0.2 % (0-4); Lymphocytes # 1.6 K/mcL (0.6-4.6); Lymphocytes % 33.8 %; Mean Corpuscular Hemoglobin 32.3 pg (28.0-33.3); Mean Corpuscular Volume 104.2 fL (83.0-100.0); Mean Platelet Volume 9.6 fL (9.4-12.4); Monocytes # 0.5 K/mcL (0.0-1.3); Monocytes % 9.4 %; Neutrophils # 2.6 K/mcL (1.6-8.9); Platelet Count 228 K/mcL (140-400); Prothrombin Time 11.7 Seconds (9.4-12.1); Red Blood Count 2.85 M/mcL (3.82-4.97); Red Cell Distribution Width 13.6 % (11.5-14.5); Segmented Neutrophils % 53.5 %
[2017-03-11 05:36] LABS: Activated Partial Thrombo Time 58.5 Seconds (26.0-36.0)
[2017-03-11 05:40] LABS: BUN/Creatinine Ratio 17 (6-26); Blood Urea Nitrogen 11 mg/dL (7-20); Carbon Dioxide 34 mEq/L (19-29); Chloride 105 mEq/L (98-109); Glucose 129 mg/dL (70-99); Magnesium 1.4 mg/dL (1.6-2.6); Osmolality,Calculated 289 (280-300); Phosphorous 3.3 mg/dL (2.3-4.7); Potassium 4.5 mEq/L (3.5-4.5); Sodium 139 mEq/L (136-145); eGFR For African Americans > 60 (> 60); eGFR For Non-African Americans > 60 (> 60)
[2017-03-11] MEDS: Baclofen 10 MG TABLET PO SCH ×3 (07:40→21:55)
[2017-03-11] MEDS: Aspirin Enteric Coated 325 MG Tablet PO SCH (07:41)
[2017-03-11] MEDS ORDERED: Magnesium Sulfate 2 GM in D5% in Water 100 ML IVPB ONE (07:58)
[2017-03-11] MEDS ORDERED: Vancomycin 1,000 MG in D5% in Water 250 ML IVPB ONE (07:58)
--- NOTE | 2017-03-11 10:04 | Internal Med Progress Note ---
Date of Encounter: 03/11/17 Time of Encounter: 09:45 - Assessment and plan (1) Acute pulmonary embolism Current Visit: Yes Status: Acute Assessment and plan: CTA chest consistent with right lower lobe segmental PE Will use Lovenox SQ therapeutic dose q12h to bridge with coumadin InR: 1.1, will continue to monitor goal INR: 2-3 elevated TNI secondary to acute PE 2D echo: Normal LV systolic function, LVEF of 55%, atypical septal motion consistent with prior cardiac surgery (pt has history of congenital heart disease s/p Cardiac surgery at age 1), no valvular dysfunction reported LE dopplers prelim negative for DVT Hematology evaluation appreciated Qualifiers: Pulmonary embolism type: other Acute cor pulmonale presence: without acute cor pulmonale Qualified Code(s): I26.99 - Other pulmonary embolism without acute cor pulmonale (2) Acute and chronic respiratory failure Current Visit: Yes Status: Acute Assessment and plan: Secondary to LLL PNA CTA chest reported collapse of left lower lobe possibly secondary to mucous plugging continue pulmonary toileting Repeat CXR shows progression of left lower lobe infiltrate given positive sputum prelim cultures of E.coli and gram positive rods, will continue Levaquin and add Vancomycin pharmacy to dose vanco and monitor trough will follow up official culture results monitor O2 sat, goal O2 sat: 89-92% Mucinex prn cough Qualifiers: Respiratory failure complication: unspecified whether with hypoxia or hypercapnia Qualified Code(s): J96.20 - Acute and chronic respiratory failure , unspecified whether with hypoxia or hypercapnia (3) Pneumonia Current Visit: Yes Status: Acute Assessment and plan: as listed above Qualifiers: Pneumonia type: due to unspecified organism Laterality: left Lung location: lower lobe of lung Qualified Code(s): J18.1 - Lobar pneumonia, unspecified organism (4) Electrolyte abnormality Current Visit: Yes Status: Acute Assessment and plan: Hypomagnesemia Mg supplemented will continue to monitor electrolytes and replace as needed (5) Tobacco abuse Current Visit: Yes Status: Acute Assessment and plan: smoking cessation counseling provided patient not ready to quit at this time refused nicotine supplementation (6) COPD (chronic obstructive pulmonary disease) Current Visit: Yes Status: Acute Assessment and plan: not in acute exacerbation continue bronchodilator support as needed Qualifiers: COPD type: unspecified COPD Qualified Code(s): J44.9 - Chronic obstructive pulmonary disease, unspecified (7) DVT prophylaxis Current Visit: Yes Status: Acute Assessment and plan: anticoagulated with Lovenox SQ - Subjective Interval history: Pt seen and examined at bedside. Reports of feeling better. no overnight issues reported. Sputum culture positive for E.Coli and Gram positive cocci. - Constitutional Vitals: Temp Pulse Resp BP Pulse Ox 98.4 F 78 18 132/89 98 03/11/17 07:36 03/11/17 07:36 03/11/17 07:56 03/11/17 07:36 03/11/17 07:56 General appearance: Present: A&O X 3, no acute distress, answers questions appropriately - Head Head exam: Present: atraumatic, normocephalic - Eye Eye exam: Present: conjuntiva pink, sclera anicteric - Respiratory Respiratory exam: Present: CTAB. Absent: accessory muscle use, rales, rhonchi, wheezes - Cardiovascular Cardiovascular exam: Present: RRR, +S1, +S2. Absent: diastolic murmur, gallop, rubs, systolic murmur - GI/Abdominal GI/Abdominal exam: Present: normal bowel sounds, soft, no peritoneal signs. Absent: distended, tenderness - Extremities Exam Extremities exam: Present: warm, radial pulses palpable and symetrical. Absent : calf tenderness, pedal edema - Neurological Exam Neurological exam: Present: alert, oriented X3 - Psychiatric Psychiatric exam: Present: normal affect, normal mood Internal Medicine: Result - Labs CBC & Chem 7: 03/11/17 05:00 03/11/17 05:00 Labs: Short CBC 03/11/17 Range/Units 05:00 WBC 4.8 (4.3-11.1) K/mcL Hgb 9.2 L (11.5-15.4) g/dL Hct 29.7 L (35.3-44.9) % Plt Count 228 (140-400) K/mcL Neutrophils # 2.6 (1.6-8.9) K/mcL BMP 03/11/17 05:00 Sodium 139 Potassium 4.5 Chloride 105 Carbon Dioxide 34 H BUN 11 Creatinine 0.65 Glucose 129 H Calcium 9.0 - ABG Interpretation ABG results: PT/INR, D-dimer PT 11.7 Seconds (9.4-12.1) 03/11/17 05:00 - Impressions Impressions Chest CTA 03/08/17 12:52 IMPRESSION: 1. Right lower lobe segmental pulmonary embolus. RV to LV ratio is within normal range. 2. Left lower lobe collapse, possibly secondary to mucous plugging. 3. Small bilateral pleural effusions with compressive atelectasis of the right lower lobe. Findings were discussed with Nerissa Gary at 3:46 pm on 03/08/2017. D/ / 03/08/2017 15:48:02 Joey Soto MD / earth[facility] Interpreting Provider: Joey Soto MD Chest X-Ray 03/10/17 10:27 IMPRESSION: Progression of left lower lobe infiltrate most consistent with pneumonia. Small bilateral effusions and an element of superimposed CHF is not excluded . D/ / Irving Tiwari MD / Irving Tiwari MD Interpreting Provider: Irving Tiwari MD Consult Discharge Plan - Plan Referrals: Daljit Auguste, ELECTRICAL MECHANICAL TECHNICIAN [Primary Care Provider] -
[2017-03-11] MEDS: *HR* Enoxaparin 60 MG/0.6 ML SYRINGE SQ SCH ×2 (12:57→17:48)
[2017-03-11] MEDS ORDERED: *HR* Warfarin 5 MG TABLET PO ONE (13:46)
[2017-03-11] MEDS: levoFLOXacin 750 MG TABLET PO SCH (15:49)
[2017-03-11] MEDS: *HR* OxyCODONE/APAP 7.5/325 TABLET PO PRN (17:48)
[2017-03-11] MEDS: Vancomycin 750 MG in D5% in Water 250 ML IVPB SCH (21:54)
[2017-03-12] MEDS: Ipratropium/Albuterol Neb 3 ML IH SCH ×6 (00:18→20:00)
[2017-03-12] MEDS: *HR* OxyCODONE/APAP 7.5/325 TABLET PO PRN ×4 (01:43→20:37)
[2017-03-12] MEDS: *HR* Enoxaparin 60 MG/0.6 ML SYRINGE SQ SCH ×2 (04:36→20:22)
[2017-03-12 04:53] LABS: Basophils % 0.6 %; Eosinophils # 0.1 K/mcL (0.0-0.6); Eosinophils % 2.5 %; Hematocrit 29.8 % (35.3-44.9); Hemoglobin 9.2 g/dL (11.5-15.4); Immature Granulocytes % 0.2 % (0-4); Lymphocytes # 1.5 K/mcL (0.6-4.6); Mean Corpuscular HGB Conc 30.9 g/dL (31.6-35.5); Mean Corpuscular Hemoglobin 32.1 pg (28.0-33.3); Mean Corpuscular Volume 103.8 fL (83.0-100.0); Mean Platelet Volume 9.5 fL (9.4-12.4); Monocytes # 0.5 K/mcL (0.0-1.3); Monocytes % 10.1 %; Platelet Count 285 K/mcL (140-400); Red Blood Count 2.87 M/mcL (3.82-4.97); Red Cell Distribution Width 13.7 % (11.5-14.5); Segmented Neutrophils % 57.6 %
[2017-03-12 04:56] LABS: INR 1.5; Prothrombin Time 16.1 Seconds (9.4-12.1)
[2017-03-12 07:32] LABS: BUN/Creatinine Ratio 18 (6-26); Blood Urea Nitrogen 13 mg/dL (7-20); Calcium 9.3 mg/dL (8.6-10.8); Carbon Dioxide 29 mEq/L (19-29); Chloride 105 mEq/L (98-109); Glucose 122 mg/dL (70-99); Magnesium 1.9 mg/dL (1.6-2.6); Osmolality,Calculated 289 (280-300); Phosphorous 4.1 mg/dL (2.3-4.7); Potassium 5.1 mEq/L (3.5-4.5); Sodium 139 mEq/L (136-145); eGFR For African Americans > 60 (> 60); eGFR For Non-African Americans > 60 (> 60)
[2017-03-12] MEDS: Baclofen 10 MG TABLET PO SCH ×3 (08:23→20:24)
[2017-03-12] MEDS: Aspirin Enteric Coated 325 MG Tablet PO SCH (08:24)
[2017-03-12] MEDS ORDERED: D5% in Water 250 ML ONE (10:23)
[2017-03-12] MEDS: Vancomycin 750 MG in D5% in Water 250 ML IVPB SCH (10:32)
--- NOTE | 2017-03-12 11:42 | Internal Med Progress Note ---
Date of Encounter: 03/12/17 Time of Encounter: 11:40 - Assessment and plan (1) Acute pulmonary embolism Current Visit: Yes Status: Acute Assessment and plan: CTA chest consistent with right lower lobe segmental PE continue Lovenox SQ therapeutic dose q12h to bridge with coumadin InR: 1.5, will continue to monitor goal INR: 2-3 elevated TNI secondary to acute PE 2D echo: Normal LV systolic function, LVEF of 55%, atypical septal motion consistent with prior cardiac surgery (pt has history of congenital heart disease s/p Cardiac surgery at age 1), no valvular dysfunction reported LE dopplers negative for DVT Hematology evaluation appreciated Qualifiers: Pulmonary embolism type: other Acute cor pulmonale presence: without acute cor pulmonale Qualified Code(s): I26.99 - Other pulmonary embolism without acute cor pulmonale (2) Acute and chronic respiratory failure Current Visit: Yes Status: Acute Assessment and plan: Secondary to LLL PNA CTA chest reported collapse of left lower lobe possibly secondary to mucous plugging continue pulmonary toileting Sputum culture positive for E.coli and Staph aureus will continue levaquin (Day 6/7) and doxycyline (day 2/7) for 7 days. monitor O2 sat, goal O2 sat: 89-92% Mucinex prn cough Qualifiers: Respiratory failure complication: unspecified whether with hypoxia or hypercapnia Qualified Code(s): J96.20 - Acute and chronic respiratory failure , unspecified whether with hypoxia or hypercapnia (3) Pneumonia Current Visit: Yes Status: Acute Assessment and plan: as listed above Qualifiers: Pneumonia type: due to unspecified organism Laterality: left Lung location: lower lobe of lung Qualified Code(s): J18.1 - Lobar pneumonia, unspecified organism (4) Electrolyte abnormality Current Visit: Yes Status: Resolved (5) Tobacco abuse Current Visit: Yes Status: Acute Assessment and plan: smoking cessation counseling provided patient not ready to quit at this time refused nicotine supplementation (6) COPD (chronic obstructive pulmonary disease) Current Visit: Yes Status: Acute Assessment and plan: not in acute exacerbation continue bronchodilator support as needed Qualifiers: COPD type: unspecified COPD Qualified Code(s): J44.9 - Chronic obstructive pulmonary disease, unspecified (7) DVT prophylaxis Current Visit: Yes Status: Acute Assessment and plan: anticoagulated with Lovenox SQ - Subjective Interval history: Pt seen and examined at bedside. States she feels better compared to previous day. No overnight issues reported. - Constitutional Vitals: Temp Pulse Resp BP Pulse Ox 98.2 F 80 18 127/85 94 03/12/17 07:38 03/12/17 07:38 03/12/17 07:52 03/12/17 07:38 03/12/17 07:52 General appearance: Present: A&O X 3, no acute distress, answers questions appropriately - Head Head exam: Present: atraumatic, normocephalic - Eye Eye exam: Present: conjuntiva pink, sclera anicteric - Respiratory Respiratory exam: Present: CTAB. Absent: respiratory distress, wheezes - Cardiovascular Cardiovascular exam: Present: RRR, +S1, +S2. Absent: diastolic murmur, gallop, rubs, systolic murmur - GI/Abdominal GI/Abdominal exam: Present: normal bowel sounds, soft, no peritoneal signs. Absent: distended, tenderness - Extremities Exam Extremities exam: Present: warm, radial pulses palpable and symetrical. Absent : calf tenderness, cyanotic, pedal edema - Neurological Exam Neurological exam: Present: alert, oriented X3 - Psychiatric Psychiatric exam: Present: normal affect, normal mood Internal Medicine: Result - Labs CBC & Chem 7: 03/12/17 04:20 03/12/17 05:55 Labs: Short CBC 03/12/17 Range/Units 04:20 WBC 5.2 (4.3-11.1) K/mcL Hgb 9.2 L (11.5-15.4) g/dL Hct 29.8 L (35.3-44.9) % Plt Count 285 (140-400) K/mcL Neutrophils # 3.0 (1.6-8.9) K/mcL BMP 03/12/17 05:55 Sodium 139 Potassium 5.1 H Chloride 105 Carbon Dioxide 29 BUN 13 Creatinine 0.72 Glucose 122 H Calcium 9.3 - ABG Interpretation ABG results: PT/INR, D-dimer PT 16.1 Seconds (9.4-12.1) H 03/12/17 04:20 Consult Discharge Plan - Plan Referrals: Daljit Auguste, CLAY STAIN MIXER [Primary Care Provider] -
[2017-03-12] MEDS: levoFLOXacin 750 MG TABLET PO SCH (14:37)
[2017-03-12] MEDS ORDERED: *HR* Warfarin 5 MG TABLET PO ONE (18:00)
[2017-03-12] MEDS: Doxycycline 100 MG CAPSULE PO SCH (20:23)
[2017-03-13] MEDS: Ipratropium/Albuterol Neb 3 ML IH SCH ×7 (00:08→23:30)
[2017-03-13] MEDS: *HR* OxyCODONE/APAP 7.5/325 TABLET PO PRN ×4 (02:42→20:50)
[2017-03-13 04:50] LABS: Basophils % 0.5 %; Eosinophils # 0.2 K/mcL (0.0-0.6); Eosinophils % 3.4 %; Hematocrit 30.7 % (35.3-44.9); Hemoglobin 9.6 g/dL (11.5-15.4); Immature Granulocytes % 0.2 % (0-4); Lymphocytes # 1.5 K/mcL (0.6-4.6); Lymphocytes % 33.4 %; Mean Corpuscular HGB Conc 31.3 g/dL (31.6-35.5); Mean Corpuscular Hemoglobin 32.1 pg (28.0-33.3); Mean Corpuscular Volume 102.7 fL (83.0-100.0); Mean Platelet Volume 9.4 fL (9.4-12.4); Monocytes # 0.6 K/mcL (0.0-1.3); Monocytes % 12.7 %; Neutrophils # 2.2 K/mcL (1.6-8.9); Platelet Count 315 K/mcL (140-400); Red Blood Count 2.99 M/mcL (3.82-4.97); Segmented Neutrophils % 49.8 %
[2017-03-13] MEDS: *HR* Enoxaparin 60 MG/0.6 ML SYRINGE SQ SCH ×2 (05:57→18:13)
[2017-03-13 06:30] LABS: INR 1.6; Prothrombin Time 17.8 Seconds (9.4-12.1)
[2017-03-13 06:39] LABS: BUN/Creatinine Ratio 15 (6-26); Blood Urea Nitrogen 11 mg/dL (7-20); Calcium 9.5 mg/dL (8.6-10.8); Carbon Dioxide 31 mEq/L (19-29); Chloride 106 mEq/L (98-109); Glucose 113 mg/dL (70-99); Magnesium 1.5 mg/dL (1.6-2.6); Osmolality,Calculated 292 (280-300); Phosphorous 3.8 mg/dL (2.3-4.7); Sodium 141 mEq/L (136-145); eGFR For African Americans > 60 (> 60); eGFR For Non-African Americans > 60 (> 60)
[2017-03-13 06:40] LABS: Potassium 4.5 mEq/L (3.5-4.5)
[2017-03-13] MEDS ORDERED: Aminoglycoside Consult 1 EACH MC ONE (07:02)
[2017-03-13] MEDS: Aspirin Enteric Coated 325 MG Tablet PO SCH (08:48)
[2017-03-13] MEDS: Doxycycline 100 MG CAPSULE PO SCH ×2 (08:49→21:17)
[2017-03-13] MEDS: Baclofen 10 MG TABLET PO SCH ×3 (08:49→21:17)
[2017-03-13] MEDS: Magnesium Oxide 400 MG TABLET PO SCH ×2 (08:49→21:17)
--- NOTE | 2017-03-13 10:13 | Internal Med Progress Note ---
Date of Encounter: 03/13/17 Time of Encounter: 09:55 - Assessment and plan (1) Acute pulmonary embolism Current Visit: Yes Status: Acute Assessment and plan: CTA chest consistent with right lower lobe segmental PE continue Lovenox SQ therapeutic dose q12h to bridge with coumadin InR: 1.6, will continue to monitor goal INR: 2-3 elevated TNI secondary to acute PE 2D echo: Normal LV systolic function, LVEF of 55%, atypical septal motion consistent with prior cardiac surgery (pt has history of congenital heart disease s/p Cardiac surgery at age 1), no valvular dysfunction reported LE dopplers negative for DVT Hematology evaluation appreciated Qualifiers: Pulmonary embolism type: other Acute cor pulmonale presence: without acute cor pulmonale Qualified Code(s): I26.99 - Other pulmonary embolism without acute cor pulmonale (2) Acute and chronic respiratory failure Current Visit: Yes Status: Acute Assessment and plan: Secondary to LLL PNA CTA chest reported collapse of left lower lobe possibly secondary to mucous plugging continue pulmonary toileting Sputum culture positive for E.coli and Staph aureus will continue levaquin (Day 7/7) and doxycyline (day 3/7) for 7 days. monitor O2 sat, goal O2 sat: 89-92% Mucinex prn cough Qualifiers: Respiratory failure complication: unspecified whether with hypoxia or hypercapnia Qualified Code(s): J96.20 - Acute and chronic respiratory failure , unspecified whether with hypoxia or hypercapnia (3) Pneumonia Current Visit: Yes Status: Acute Assessment and plan: as listed above Qualifiers: Pneumonia type: due to unspecified organism Laterality: left Lung location: lower lobe of lung Qualified Code(s): J18.1 - Lobar pneumonia, unspecified organism (4) Electrolyte abnormality Current Visit: Yes Status: Acute Assessment and plan: Hypomagnesemia Mg supplemented will continue to monitor electrolytes and replace as needed (5) Tobacco abuse Current Visit: Yes Status: Acute Assessment and plan: smoking cessation counseling provided patient not ready to quit at this time refused nicotine supplementation (6) COPD (chronic obstructive pulmonary disease) Current Visit: Yes Status: Acute Assessment and plan: not in acute exacerbation continue bronchodilator support as needed Qualifiers: COPD type: unspecified COPD Qualified Code(s): J44.9 - Chronic obstructive pulmonary disease, unspecified (7) DVT prophylaxis Current Visit: Yes Status: Acute Assessment and plan: anticoagulated with Lovenox SQ - Subjective Interval history: Pt seen and examined at bedside. Resting in chair and reports of feeling better. No overnight issues reported. pt states she does not have a functioning car and will need assistance with transportation to her appointments after discharge, social service manager will be consulted. - Constitutional Vitals: Temp Pulse Resp BP Pulse Ox 98.3 F 79 15 118/73 94 03/13/17 07:00 03/13/17 07:00 03/13/17 07:00 03/13/17 07:00 03/13/17 07:00 General appearance: Present: A&O X 3, no acute distress, answers questions appropriately - Head Head exam: Present: atraumatic, normocephalic - Eye Eye exam: Present: conjuntiva pink, sclera anicteric - Respiratory Respiratory exam: Present: CTAB. Absent: accessory muscle use, rales, rhonchi, wheezes - Cardiovascular Cardiovascular exam: Present: RRR, +S1, +S2. Absent: diastolic murmur, gallop, rubs, systolic murmur - GI/Abdominal GI/Abdominal exam: Present: normal bowel sounds, soft, no peritoneal signs. Absent: distended, tenderness - Extremities Exam Extremities exam: Present: warm, radial pulses palpable and symetrical. Absent : calf tenderness, cyanotic, pedal edema - Neurological Exam Neurological exam: Present: alert, oriented X3 - Psychiatric Psychiatric exam: Present: normal affect, normal mood Internal Medicine: Result - Labs CBC & Chem 7: 03/13/17 04:00 03/13/17 06:03 Labs: Short CBC 03/13/17 Range/Units 04:00 WBC 4.4 (4.3-11.1) K/mcL Hgb 9.6 L (11.5-15.4) g/dL Hct 30.7 L (35.3-44.9) % Plt Count 315 (140-400) K/mcL Neutrophils # 2.2 (1.6-8.9) K/mcL BMP 03/13/17 06:03 Sodium 141 Potassium 4.5 Chloride 106 Carbon Dioxide 31 H BUN 11 Creatinine 0.71 Glucose 113 H Calcium 9.5 - ABG Interpretation ABG results: PT/INR, D-dimer PT 17.8 Seconds (9.4-12.1) H 03/13/17 06:03 Consult Discharge Plan - Plan Referrals: Daljit Auguste, EMILIA [Primary Care Provider] -
[2017-03-13] MEDS: levoFLOXacin 750 MG TABLET PO SCH (14:47)
[2017-03-13] MEDS ORDERED: *HR* Warfarin 7.5 MG TABLET PO ONE (18:00)
[2017-03-14] MEDS: Ipratropium/Albuterol Neb 3 ML IH SCH ×6 (03:37→23:26)
[2017-03-14 04:57] LABS: Basophils % 0.9 %; Eosinophils # 0.1 K/mcL (0.0-0.6); Eosinophils % 2.9 %; Hematocrit 31.9 % (35.3-44.9); Hemoglobin 9.9 g/dL (11.5-15.4); Immature Granulocytes % 0.7 % (0-4); Lymphocytes # 1.4 K/mcL (0.6-4.6); Lymphocytes % 31.5 %; Mean Corpuscular Hemoglobin 32.5 pg (28.0-33.3); Mean Corpuscular Volume 104.6 fL (83.0-100.0); Mean Platelet Volume 10.8 fL (9.4-12.4); Monocytes % 12.1 %; Platelet Count 265 K/mcL (140-400); Red Blood Count 3.05 M/mcL (3.82-4.97); Red Cell Distribution Width 14.3 % (11.5-14.5); Segmented Neutrophils % 51.9 %
[2017-03-14 05:09] LABS: BUN/Creatinine Ratio 19 (6-26); Blood Urea Nitrogen 14 mg/dL (7-20); Calcium 9.5 mg/dL (8.6-10.8); Carbon Dioxide 23 mEq/L (19-29); Chloride 107 mEq/L (98-109); Glucose 120 mg/dL (70-99); Magnesium 1.7 mg/dL (1.6-2.6); Osmolality,Calculated 292 (280-300); Potassium 4.2 mEq/L (3.5-4.5); Sodium 140 mEq/L (136-145); eGFR For African Americans > 60 (> 60); eGFR For Non-African Americans > 60 (> 60)
[2017-03-14 05:12] LABS: INR 2.6; Prothrombin Time 28.6 Seconds (9.4-12.1)
[2017-03-14 05:47] LABS: Monocytes # 0.5 K/mcL (0.0-1.3); Neutrophils # 2.3 K/mcL (1.6-8.9)
[2017-03-14 05:48] LABS: Platelet Estimate Normal (Normal)
[2017-03-14] MEDS: *HR* Enoxaparin 60 MG/0.6 ML SYRINGE SQ SCH ×2 (06:14→18:39)
[2017-03-14] MEDS: *HR* OxyCODONE/APAP 7.5/325 TABLET PO PRN ×3 (06:14→18:59)
--- NOTE | 2017-03-14 10:18 | Internal Med Progress Note ---
Date of Encounter: 03/14/17 Time of Encounter: 10:15 - Assessment and plan (1) Acute pulmonary embolism Current Visit: Yes Status: Acute Assessment and plan: CTA chest consistent with right lower lobe segmental PE Given current INR readings, will hold today's coumadin dose and d/c Lovenox SQ after tonight's dose If INR remains in the therapeutic range, likely d/c in am hematology follow up after discharge coumadin clinic follow up after discharge. Qualifiers: Pulmonary embolism type: other Acute cor pulmonale presence: without acute cor pulmonale Qualified Code(s): I26.99 - Other pulmonary embolism without acute cor pulmonale (2) Acute and chronic respiratory failure Current Visit: Yes Status: Resolved Assessment and plan: Secondary to LLL PNA CTA chest reported collapse of left lower lobe possibly secondary to mucous plugging Sputum culture positive for E.coli and Staph aureus doxycyline (day 4) for 7 days. monitor O2 sat, goal O2 sat: 89-92% Mucinex prn cough Qualifiers: Respiratory failure complication: unspecified whether with hypoxia or hypercapnia Qualified Code(s): J96.20 - Acute and chronic respiratory failure , unspecified whether with hypoxia or hypercapnia (3) Pneumonia Current Visit: Yes Status: Acute Assessment and plan: as listed above Qualifiers: Pneumonia type: due to unspecified organism Laterality: left Lung location: lower lobe of lung Qualified Code(s): J18.1 - Lobar pneumonia, unspecified organism (4) Electrolyte abnormality Current Visit: Yes Status: Resolved (5) Tobacco abuse Current Visit: Yes Status: Acute Assessment and plan: smoking cessation counseling provided patient not ready to quit at this time refused nicotine supplementation (6) COPD (chronic obstructive pulmonary disease) Current Visit: Yes Status: Acute Assessment and plan: not in acute exacerbation continue bronchodilator support as needed Qualifiers: COPD type: unspecified COPD Qualified Code(s): J44.9 - Chronic obstructive pulmonary disease, unspecified (7) DVT prophylaxis Current Visit: Yes Status: Acute Assessment and plan: Lovenox SQ - Subjective Interval history: Patient seen and examined at bedside. Resting in bed and reports of feeling well at this time. Saturating well on room air. Patient's INR is 2.6 today however she received a higher dose of coumadin yesterday evening, therefore the concern is that the patient may be in the supratherapeutic range tomorrow. Given the fact it is a weekend and patient won' t be able to get an appointment at the Coumadin clinic for the next few days and risks associated with bleeding due to supratherapeutic INR, will keep the patient for additional night. Will hold today's coumadin dose and d/c lovenox SQ after tonight's dose. Patient in agreement with the current plan. Coumadin clinic appointment will be set up prior to patient's discharge - Constitutional Vitals: Temp Pulse Resp BP Pulse Ox 98.0 F 91 14 94/52 94 03/14/17 09:06 03/14/17 09:06 03/14/17 09:06 03/14/17 09:06 03/14/17 09:06 General appearance: Present: A&O X 3, no acute distress, answers questions appropriately - Head Head exam: Present: atraumatic, normocephalic - Eye Eye exam: Present: conjuntiva pink, sclera anicteric - Respiratory Respiratory exam: Present: CTAB. Absent: respiratory distress, wheezes - Cardiovascular Cardiovascular exam: Present: RRR, +S1, +S2. Absent: diastolic murmur, gallop, rubs, systolic murmur - GI/Abdominal GI/Abdominal exam: Present: normal bowel sounds, soft, no peritoneal signs. Absent: distended, tenderness - Extremities Exam Extremities exam: Present: warm, radial pulses palpable and symetrical. Absent : calf tenderness, cyanotic, pedal edema - Neurological Exam Neurological exam: Present: alert, oriented X3 - Psychiatric Psychiatric exam: Present: normal affect, normal mood Internal Medicine: Result - Labs CBC & Chem 7: 03/14/17 04:24 03/14/17 04:24 Labs: Short CBC 03/14/17 Range/Units 04:24 WBC 4.5 (4.3-11.1) K/mcL Hgb 9.9 L (11.5-15.4) g/dL Hct 31.9 L (35.3-44.9) % Plt Count 265 (140-400) K/mcL Neutrophils # 2.3 (1.6-8.9) K/mcL BMP 03/14/17 04:24 Sodium 140 Potassium 4.2 Chloride 107 Carbon Dioxide 23 BUN 14 Creatinine 0.72 Glucose 120 H Calcium 9.5 - ABG Interpretation ABG results: PT/INR, D-dimer PT 28.6 Seconds (9.4-12.1) H D 03/14/17 04:24 Consult Discharge Plan - Plan Referrals: Daljit Auguste, EMILIA [Primary Care Provider] -
[2017-03-14] MEDS: Doxycycline 100 MG CAPSULE PO SCH ×2 (10:40→21:21)
[2017-03-14] MEDS: Magnesium Oxide 400 MG TABLET PO SCH ×2 (10:40→21:21)
[2017-03-14] MEDS: Baclofen 10 MG TABLET PO SCH ×3 (10:40→21:21)
[2017-03-14] MEDS: Aspirin Enteric Coated 325 MG Tablet PO SCH (10:40)
[2017-03-15] MEDS: Ipratropium/Albuterol Neb 3 ML IH SCH ×3 (04:20→10:32)
[2017-03-15] MEDS: *HR* OxyCODONE/APAP 7.5/325 TABLET PO PRN ×2 (04:55→11:22)
[2017-03-15 05:24] LABS: Eosinophils # 0.1 K/mcL (0.0-0.6); Eosinophils % 2.6 %; Hematocrit 30.7 % (35.3-44.9); Hemoglobin 9.7 g/dL (11.5-15.4); Immature Granulocytes % 0.5 % (0-4); Immature Platelets 1.9 % (1.1-6.1); Lymphocytes # 1.5 K/mcL (0.6-4.6); Lymphocytes % 36.2 %; Mean Corpuscular HGB Conc 31.6 g/dL (31.6-35.5); Mean Corpuscular Hemoglobin 32.6 pg (28.0-33.3); Monocytes # 0.6 K/mcL (0.0-1.3); Monocytes % 13.8 %; Neutrophils # 1.9 K/mcL (1.6-8.9); Platelet Count 358 K/mcL (140-400); Red Blood Count 2.98 M/mcL (3.82-4.97); Red Cell Distribution Width 14.2 % (11.5-14.5); Segmented Neutrophils % 45.9 %
[2017-03-15 05:28] LABS: INR 2.2; Prothrombin Time 23.9 Seconds (9.4-12.1)
[2017-03-15 06:09] LABS: BUN/Creatinine Ratio 28 (6-26); Blood Urea Nitrogen 19 mg/dL (7-20); Calcium 9.1 mg/dL (8.6-10.8); Carbon Dioxide 26 mEq/L (19-29); Chloride 109 mEq/L (98-109); Glucose 102 mg/dL (70-99); Magnesium 1.9 mg/dL (1.6-2.6); Osmolality,Calculated 294 (280-300); Phosphorous 3.8 mg/dL (2.3-4.7); Potassium 4.5 mEq/L (3.5-4.5); Sodium 141 mEq/L (136-145); eGFR For African Americans > 60 (> 60); eGFR For Non-African Americans > 60 (> 60)
[2017-03-15 07:39] VITALS: BP 113/73
--- NOTE | 2017-03-15 09:41 | Discharge Summary ---
Date of Encounter: 03/15/17 Time of Encounter: 08:55 - Discharge Diagnosis (1) Acute pulmonary embolism Priority: Secondary Status: Acute Qualifiers: Pulmonary embolism type: other Acute cor pulmonale presence: without acute cor pulmonale Qualified Code(s): I26.99 - Other pulmonary embolism without acute cor pulmonale (2) Acute and chronic respiratory failure Priority: Primary Status: Resolved Qualifiers: Respiratory failure complication: unspecified whether with hypoxia or hypercapnia Qualified Code(s): J96.20 - Acute and chronic respiratory failure , unspecified whether with hypoxia or hypercapnia (3) Pneumonia Priority: Primary Status: Acute Qualifiers: Pneumonia type: due to unspecified organism Laterality: left Lung location: lower lobe of lung Qualified Code(s): J18.1 - Lobar pneumonia, unspecified organism (4) Electrolyte abnormality Priority: Secondary Status: Resolved (5) Tobacco abuse Priority: Secondary Status: Chronic (6) COPD (chronic obstructive pulmonary disease) Priority: Secondary Status: Chronic Qualifiers: COPD type: unspecified COPD Qualified Code(s): J44.9 - Chronic obstructive pulmonary disease, unspecified (7) DVT prophylaxis Priority: Secondary Status: Acute - Discharge Medications Prescriptions: Doxycycline 100 mg PO BID #5 OxyCODONE/APAP 7.5/325 [Percocet 7.5/325 MG] 1 each PO Q6H PRN #15 tab PRN Reason: Severe Pain Warfarin [Coumadin] 4 mg PO 1800 #30 tablet Home Medications: Quetiapine Fumarate [Seroquel] 400 mg PO HS 08/10/15 [History] Baclofen 20 mg PO TID 09/11/16 [History] Acetaminophen with Codeine [Acetaminophen-Cod #4 Tablet] 1 tab PO Q4-6H PRN [History] Albuterol Sulfate [Ventolin Hfa] 2 puff IH Q4H PRN 03/07/17 [History] Furosemide [Lasix] 20 mg PO QTUTHSA 03/07/17 [History] Ipratropium/Albuterol Neb [Duoneb] 3 ml IH DAILY PRN 03/07/17 [History] Metoprolol XL (24 HR) Succ [Toprol Xl] 25 mg PO DAILY 03/07/17 [History] Potassium Chloride [Klor-Con 10] 10 meq PO TUTHSA 03/07/17 [History] Doxycycline 100 mg PO BID #5 03/15/17 [Rx] OxyCODONE/APAP 7.5/325 [Percocet 7.5/325 MG] 1 each PO Q6H PRN #15 tab 03/15/17 [Rx] Warfarin [Coumadin] 4 mg PO 1800 #30 tablet 03/15/17 [Rx] Allergies/Adverse Reactions: Allergies Penicillins Adverse Reaction (Verified 03/07/17 08:39) See Comments pt unknown of reaction. states she had a reaction as a child. prednisone Adverse Reaction (Verified 03/07/17 08:39) See Comments pt states it cause her to swell all over. Date of admission: 03/07/17 15:01 Primary care physician: Daljit Auguste CNP Consults: 03/08/17 12:20 Consult to Nutrition [CONS] Routine Comment: Consulting Provider: NUTRITION Reason for Dietary Consult: PO Supplementation 03/09/17 08:39 Consult to Oncology Hematology [CONS] Routine Consulting Provider: Oli Ellington I Reason for Consult: segmental PE, needs halfway anticoagulation Call Completed: Yes 03/09/17 10:08 Consult to Respiratory Therapy [CONS] Routine Reason for Consult: pulmonary Toileting Time Notified: 10:08 Call Completed: Yes 03/09/17 14:08 Consult to PICC team [Consult to Invasive Line Access Team] [CONS] Routine Reason for Consult: poor IV access on heparin drip Line Type: EPIV 03/10/17 15:25 Consult to Invasive Line Access Team [CONS] Routine Reason for Consult: limited vascular access Line Type: EPIV Discharging clinician: Nerissa Gary Anticipated date of discharge: 03/15/17 - Patient Status Disposition: Home, Self-Care Condition: Good Functional capacity at discharge: independent ambulation Overall status at discharge: patient is back to baseline - Discharge Instructions Follow Up With: Daljit Auguste CNP [Primary Care Provider] - 03/17/17 1:20 pm (Follow up post discharge for pulmonary embolism and pneumonia.) Additional Instructions: Please follow up with your primary care physician within five days after your discharge from the hospital. Please follow up with Coumadin Clinic on Friday March 17, 2017. Please follow up with your mail carrier within one to two weeks after your discharge from the hospital. Please continue oral antibiotics as prescribed. Please continue Coumadin dose as prescribed. Please closely monitor for any signs of acute bleeding. if you sustain a fall or have active bleeding, please seek medical help immediately. Coumadin increases your risk of bleeding. Resume all your home medications as prescribed by your primary care physician. - Diet and Activity Activity: resume usual activities as tolerated, wear oxygen at all times Diet: low salt diet Hospital course: Ms. Figueroa is a 46 year old female with PMH of COPD on LTOT, GERD, HTN who was admitted for acute on chronic respiratory failure secondary to PNA. Her hospital course was complicated by acute PE for which she was started on anticoagulation therapy. Hematology was consulted and she was started on Coumadin as per their recommendations. Pt was bridged with Heparin until INR was within therapeutic range. At this time, patient is hemodynamically stable and will be discharged to home today. She is to follow up with coumadin clinic, pcp, and hemalogist after discharge. Pt demonstrates understanding of her diagnosis and agrees with the discharge care and plan. - Time Spent with Patient Total time spent providing and/or coordinating discharge services: Less than 30 minutes - Constitutional Vitals: Temp Pulse Resp BP Pulse Ox 98.3 F 75 16 113/73 97 03/15/17 07:37 03/15/17 07:37 03/15/17 07:37 03/15/17 07:37 03/15/17 07:37 General appearance: Present: A&O X 3, no acute distress, answers questions appropriately - Head Head exam: Present: atraumatic, normocephalic - Eye Eye exam: Present: normal appearance, conjuntiva pink, sclera anicteric - Respiratory Respiratory exam: Present: CTAB. Absent: accessory muscle use, rales, rhonchi, wheezes - Cardiovascular Cardiovascular exam: Present: RRR, +S1, +S2. Absent: diastolic murmur, gallop, rubs, systolic murmur - GI/Abdominal GI/Abdominal exam: Present: normal bowel sounds, soft, no peritoneal signs. Absent: distended, tenderness - Extremities Exam Extremities exam: Present: warm, radial pulses palpable and symetrical. Absent : calf tenderness, cyanotic, pedal edema - Neurological Exam Neurological exam: Present: alert, oriented X3 - Psychiatric Psychiatric exam: Present: normal affect, normal mood
[2017-03-15] MEDS: Doxycycline 100 MG CAPSULE PO SCH (09:51)
[2017-03-15] MEDS: Baclofen 10 MG TABLET PO SCH (09:51)
[2017-03-15] MEDS: Aspirin Enteric Coated 325 MG Tablet PO SCH (09:51)
[2017-03-15] MEDS: Magnesium Oxide 400 MG TABLET PO SCH (09:51)
== END 2017-03-15 12:31 | disposition home or self-care (01) | DRG 134 ==
LOC: INTOOBSV 23:33 → 2NENU 23:33
PROVIDERS: ADMIT Internal Medicine; ATTEND Internal Medicine

== ENCOUNTER 2019-11-02 15:44 | Observation (INO) ==
[2019-11-02] MEDS ORDERED: Isovue-370 500 ML BOTTLE IVP ONE (15:57)
[2019-11-02] MEDS ORDERED: *HR* FentaNYL (PF) 100 MCG/2 ML VIAL IVP ONE (16:07)
[2019-11-02 16:18] LABS: Basophils % 0.3 %; Hematocrit 43.5 % (35.3-44.9); Hemoglobin 13.7 g/dL (11.5-15.4); Immature Granulocytes % 0.9 % (0-4); Lymphocytes # 0.5 K/mcL (0.6-4.6); Mean Corpuscular HGB Conc 31.5 g/dL (31.6-35.5); Mean Corpuscular Hemoglobin 31.6 pg (28.0-33.3); Mean Corpuscular Volume 100.5 fL (83.0-100.0); Mean Platelet Volume 9.1 fL (9.4-12.4); Monocytes # 0.3 K/mcL (0.0-1.3); Monocytes % 2.6 %; Neutrophils # 10.3 K/mcL (1.6-8.9); Platelet Count 409 K/mcL (140-400); Red Blood Count 4.33 M/mcL (3.82-4.97); Red Cell Distribution Width 12.7 % (11.5-14.5); Segmented Neutrophils % 92.2 %; White Blood Count 11.2 K/mcL (4.3-11.1)
[2019-11-02 16:21] LABS: INR 2.6; Prothrombin Time 29.3 Seconds (9.4-12.1)
[2019-11-02 16:53] LABS: Alanine Aminotransferase 10 Units/L (7-52); Albumin 4.6 g/dL (3.5-5.7); Albumin/Globulin Ratio 1.8 (1.1-2.2); Alkaline Phosphatase 64 Units/L (34-104); Aspartate Amino Transferase 12 Units/L (13-39); BUN/Creatinine Ratio 23 (6-26); Bilirubin,Total 0.3 mg/dL (0.3-1.0); Blood Urea Nitrogen 27 mg/dL (6-20); Calcium 9.5 mg/dL (8.6-10.3); Carbon Dioxide 33 mEq/L (23-29); Chloride 80 mEq/L (98-107); Globulin 2.5 g/dL (2.4-3.5); Glucose 536 mg/dL (70-105); Osmolality,Calculated 299 (280-300); Potassium 3.8 mEq/L (3.5-5.1); Sodium 130 mEq/L (136-145); Total Protein 7.1 g/dL (6.4-8.9); Troponin I < 0.03 ng/mL (< 0.04); eGFR For African Americans 59 (> 60); eGFR For Non-African Americans 48 (> 60)
[2019-11-02] MEDS ORDERED: 0.9 % Sodium Chloride 1,000 ML IVC STA (17:15)
[2019-11-02] MEDS ORDERED: Insulin NPH 100 UNIT/ML (x5UNIT) SQ STA (17:39)
[2019-11-02] MEDS ORDERED: Insulin Regular, Human 100 UNIT/ML SQ ONE (17:41)
[2019-11-02 17:55] LABS: VBG HCO3 41 mEq/L (21-27); VBG PCO2 69 mmHg (41-51); VBG PH 7.39 pH Units (7.32-7.42); VBG PO2 87 mmHg (25-50)
[2019-11-02] MEDS ORDERED: methylPREDNISolone 125 MG/2 ML VIAL IVP ONE (18:34)
[2019-11-02] MEDS ORDERED: Ipratropium/Albuterol Neb 3 ML IH ONE (18:34)
[2019-11-02] MEDS ORDERED: *HR* HYDROmorphone (PF) 1 MG/ML SYRINGE IVP ONE (18:57)
[2019-11-02] MEDS ORDERED: Naloxone 0.4 MG/ML INJ IVP PRN (21:58)
[2019-11-02] MEDS ORDERED: Albuterol 2.5 MG/3 ML NEBULIZER IH PRN (22:12)
[2019-11-02] MEDS ORDERED: *HR* Dextrose 50 % in Water (Syg) 50 ML SYRINGE IVP PRN (22:14)
[2019-11-02] MEDS ORDERED: Dextrose Gel 15 GM/37.5 ML TUBE PO PRN ×2 (22:14)
[2019-11-02] MEDS ORDERED: D5% in Water 1,000 ML IVC PRN (22:14)
[2019-11-02] MEDS ORDERED: 0.9 % Sodium Chloride 1,000 ML IVC ONE (22:18)
[2019-11-02 22:45] LABS: Estimated Average Glucose 237 mg/dl
[2019-11-02] MEDS ORDERED: Morphine Sulfate 2 MG/ML SYRINGE IVP ONE (22:47)
[2019-11-02 22:55] LABS: Acetaminophen < 10 mcg/mL (10-20); BUN/Creatinine Ratio 26 (6-26); Blood Urea Nitrogen 24 mg/dL (6-20); Calcium 8.8 mg/dL (8.6-10.3); Carbon Dioxide 34 mEq/L (23-29); Chloride 91 mEq/L (98-107); Glucose 166 mg/dL (70-105); Osmolality,Calculated 292 (280-300); Potassium 3.9 mEq/L (3.5-5.1); Salicylate < 2.5 mg/dL (15.0-30.0); Sodium 137 mEq/L (136-145); eGFR For African Americans > 60 (> 60); eGFR For Non-African Americans > 60 (> 60)
[2019-11-02] MEDS ORDERED: cefTRIAXone 2,000 MG in Water for inj. (sterile) 10 ML IVP SCH (23:00)
[2019-11-02] MEDS: Nicotine 14 MG PATCH.TD24 TD SCH (23:18)
[2019-11-02] MEDS: Insulin LISPRO 300 UNITS/3 ML VIAL SQ SCH ×2 (23:22→23:46)
[2019-11-02] MEDS: Ipratropium/Albuterol Neb 3 ML IH SCH (23:57)
[2019-11-03] MEDS: 0.9 % Sodium Chloride 1,000 ML IVC SCH ×2 (00:34→04:48)
[2019-11-03 00:54] LABS: Bilirubin,Urine Negative (Negative); Blood,Urine Negative (Negative); Clarity,Urine Clear (Clear); Color,Urine Yellow (Yellow); Glucose,Urine (UA) 500 mg/dL (Normal); Ketones,Urine Trace mg/dL (Negative); Leukocyte Esterase,Urine Negative (Negative); Nitrite,Urine Negative (Negative); Protein,Urine 30 mg/dL (Neg-Trace); Specific Gravity,Urine > 1.030 (1.010-1.025); Urobilinogen,Urine Normal (Normal)
[2019-11-03 00:57] LABS: Bacteria,Urine None Seen per hpf (None-Few); Hyaline Casts,Urine None Seen per lpf (None-Few); Squamous Epithelial Cell,Urine Many per lpf (None-Few)
[2019-11-03 01:14] LABS: Yeast,Urine Few per hpf (None Seen)
[2019-11-03] MEDS: Ipratropium/Albuterol Neb 3 ML IH SCH ×6 (03:34→23:56)
[2019-11-03 03:58] LABS: Basophils % 0.1 %; Hematocrit 33.4 % (35.3-44.9); Immature Granulocytes % 0.7 % (0-4); Lymphocytes # 0.4 K/mcL (0.6-4.6); Lymphocytes % 4.7 %; Mean Corpuscular HGB Conc 31.4 g/dL (31.6-35.5); Mean Corpuscular Hemoglobin 31.9 pg (28.0-33.3); Mean Corpuscular Volume 101.5 fL (83.0-100.0); Mean Platelet Volume 9.2 fL (9.4-12.4); Monocytes # 0.1 K/mcL (0.0-1.3); Monocytes % 1.4 %; Neutrophils # 8.1 K/mcL (1.6-8.9); Platelet Count 303 K/mcL (140-400); Red Blood Count 3.29 M/mcL (3.82-4.97); Red Cell Distribution Width 12.8 % (11.5-14.5); Segmented Neutrophils % 93.1 %; White Blood Count 8.7 K/mcL (4.3-11.1)
[2019-11-03 04:02] LABS: Hemoglobin 10.5 g/dL (11.5-15.4)
[2019-11-03 04:18] LABS: BUN/Creatinine Ratio 37 (6-26); Blood Urea Nitrogen 19 mg/dL (6-20); Calcium 7.7 mg/dL (8.6-10.3); Carbon Dioxide 34 mEq/L (23-29); Chloride 101 mEq/L (98-107); Glucose 139 mg/dL (70-105); Osmolality,Calculated 289 (280-300); Potassium 3.5 mEq/L (3.5-5.1); Sodium 137 mEq/L (136-145); eGFR For African Americans > 60 (> 60); eGFR For Non-African Americans > 60 (> 60)
[2019-11-03 04:20] LABS: Phosphorous 2.3 mg/dL (2.7-4.5)
[2019-11-03 04:22] LABS: Troponin I 0.03 ng/mL (< 0.04)
[2019-11-03] MEDS: Insulin LISPRO 300 UNITS/3 ML VIAL SQ SCH ×5 (05:24→22:07)
[2019-11-03] MEDS ORDERED: Calcium Gluconate 1gm/50mL 1 GM/50 ML BAG IVPB ONE (05:41)
[2019-11-03] MEDS ORDERED: predniSONE 20 MG TABLET PO SCH (09:00)
[2019-11-03] MEDS: Furosemide 20 MG TABLET PO SCH ×2 (09:17→22:06)
[2019-11-03 09:33] LABS: BUN/Creatinine Ratio 33 (6-26); Blood Urea Nitrogen 16 mg/dL (6-20); Carbon Dioxide 33 mEq/L (23-29); Chloride 101 mEq/L (98-107); Glucose 146 mg/dL (70-105); Osmolality,Calculated 290 (280-300); Potassium 3.3 mEq/L (3.5-5.1); Sodium 138 mEq/L (136-145); eGFR For African Americans > 60 (> 60); eGFR For Non-African Americans > 60 (> 60)
[2019-11-03] MEDS ORDERED: Ipratropium/Albuterol Neb 3 ML IH SCH (09:45)
[2019-11-03] MEDS: Metoprolol XL (24 HR) Succ 50 MG TAB.ER.24H PO SCH (10:16)
[2019-11-03] MEDS: MethylPREDNISolone 40 MG/ML VIAL IVP SCH ×2 (10:17→17:30)
[2019-11-03] MEDS: *HR* Heparin 5,000 UNIT/ML VIAL SQ SCH ×2 (10:17)
[2019-11-03] MEDS ORDERED: *HR* Warfarin 2 MG TABLET PO ONE (18:00)
[2019-11-03] MEDS ORDERED: Warfarin perPT PO PRN (18:00)
[2019-11-03] MEDS ORDERED: Insulin LISPRO 300 UNITS/3 ML VIAL SQ SCH (21:00)
[2019-11-03] MEDS: QUEtiapine Fumarate 100 MG TABLET PO SCH (22:06)
[2019-11-03] MEDS: Nicotine 14 MG PATCH.TD24 TD SCH (22:10)
[2019-11-04 02:32] LABS: Basophils % 0.1 %; Hematocrit 32.4 % (35.3-44.9); Hemoglobin 10.2 g/dL (11.5-15.4); Immature Granulocytes % 0.8 % (0-4); Lymphocytes # 0.6 K/mcL (0.6-4.6); Lymphocytes % 6.7 %; Mean Corpuscular HGB Conc 31.5 g/dL (31.6-35.5); Mean Corpuscular Hemoglobin 31.9 pg (28.0-33.3); Mean Corpuscular Volume 101.3 fL (83.0-100.0); Mean Platelet Volume 9.4 fL (9.4-12.4); Monocytes # 0.4 K/mcL (0.0-1.3); Neutrophils # 7.8 K/mcL (1.6-8.9); Platelet Count 312 K/mcL (140-400); Red Cell Distribution Width 12.8 % (11.5-14.5); Segmented Neutrophils % 88.4 %; White Blood Count 8.8 K/mcL (4.3-11.1)
[2019-11-04 03:08] LABS: BUN/Creatinine Ratio 38 (6-26); Blood Urea Nitrogen 18 mg/dL (6-20); Calcium 8.9 mg/dL (8.6-10.3); Carbon Dioxide 42 mEq/L (23-29); Chloride 95 mEq/L (98-107); Glucose 310 mg/dL (70-105); Magnesium 1.6 mg/dL (1.6-2.6); Osmolality,Calculated 302 (280-300); Phosphorous 2.3 mg/dL (2.7-4.5); Potassium 4.1 mEq/L (3.5-5.1); Sodium 139 mEq/L (136-145); eGFR For African Americans > 60 (> 60); eGFR For Non-African Americans > 60 (> 60)
[2019-11-04] MEDS: Ipratropium/Albuterol Neb 3 ML IH SCH ×6 (03:11→23:22)
[2019-11-04] MEDS: MethylPREDNISolone 40 MG/ML VIAL IVP SCH (06:12)
[2019-11-04 07:24] LABS: INR 1.3; Prothrombin Time 14.9 Seconds (9.4-12.1)
[2019-11-04] MEDS: Metoprolol XL (24 HR) Succ 50 MG TAB.ER.24H PO SCH (09:04)
[2019-11-04] MEDS: Furosemide 20 MG TABLET PO SCH ×2 (09:04→22:15)
[2019-11-04] MEDS: Insulin LISPRO 300 UNITS/3 ML VIAL SQ SCH ×4 (09:04→19:49)
[2019-11-04 11:55] LABS: ABG Base Excess 19 mEq/L (-2 to 3); ABG HCO3 46 mEq/L (21-27); ABG Oxygen Saturation 96 % (95-98); ABG PCO2 65 mmHg (35-45); ABG PH 7.46 pH Units (7.32-7.45); ABG PO2 84 mmHg (85-104); ABG TCO2 48 mEq/L (20-26)
[2019-11-04] MEDS ORDERED: Insulin LISPRO 300 UNITS/3 ML VIAL SQ ONE (16:56)
[2019-11-04] MEDS ORDERED: *HR* Warfarin 4 MG TABLET PO ONE (18:00)
[2019-11-04] MEDS: *HR* Enoxaparin 60 MG/0.6 ML SYRINGE SQ SCH (18:19)
[2019-11-04] MEDS: QUEtiapine Fumarate 100 MG TABLET PO SCH (22:14)
[2019-11-04] MEDS: Nicotine 14 MG PATCH.TD24 TD SCH (22:16)
[2019-11-05] MEDS: Ipratropium/Albuterol Neb 3 ML IH SCH ×3 (03:41→10:50)
[2019-11-05 04:30] LABS: INR 1.2; Prothrombin Time 14.1 Seconds (9.4-12.1)
[2019-11-05 04:42] LABS: BUN/Creatinine Ratio 36 (6-26); Blood Urea Nitrogen 20 mg/dL (6-20); Calcium 9.6 mg/dL (8.6-10.3); Carbon Dioxide 39 mEq/L (23-29); Chloride 95 mEq/L (98-107); Glucose 100 mg/dL (70-105); Magnesium 1.1 mg/dL (1.6-2.6); Osmolality,Calculated 289 (280-300); Phosphorous 3.7 mg/dL (2.7-4.5); Potassium 3.9 mEq/L (3.5-5.1); Sodium 138 mEq/L (136-145); eGFR For African Americans > 60 (> 60); eGFR For Non-African Americans > 60 (> 60)
[2019-11-05] MEDS: *HR* Enoxaparin 60 MG/0.6 ML SYRINGE SQ SCH (05:59)
[2019-11-05 07:10] VITALS: BP 112/74
[2019-11-05] MEDS: Insulin LISPRO 300 UNITS/3 ML VIAL SQ SCH (08:02)
[2019-11-05] MEDS ORDERED: predniSONE 20 MG TABLET PO SCH (09:00)
[2019-11-05] MEDS: Metoprolol XL (24 HR) Succ 50 MG TAB.ER.24H PO SCH (09:08)
[2019-11-05] MEDS: Furosemide 20 MG TABLET PO SCH (09:08)
[2019-11-05] MEDS ORDERED: *HR* Warfarin 4 MG TABLET PO ONE (18:00)
== END 2019-11-05 12:45 | disposition home health service (06) ==
LOC: EMEROOARM 15:44 → 3BNU 15:44 → SUATTDRO 20:05 → 3BNU 20:40
PROVIDERS: ADMIT Family Medicine; ATTEND Internal Medicine

== ENCOUNTER 2020-02-20 19:24 | Inpatient (IN) ==
[2020-02-20 22:16] LABS: VBG HCO3 43 mEq/L (21-27); VBG PCO2 50 mmHg (41-51); VBG PH 7.55 pH Units (7.32-7.42); VBG PO2 123 mmHg (25-50)
[2020-02-20] MEDS ORDERED: Naloxone 0.4 MG/ML INJ IVP PRN (22:21)
[2020-02-20] MEDS ORDERED: Albuterol 2.5 MG/3 ML NEBULIZER IH ONE (22:25)
[2020-02-20 22:39] LABS: BUN/Creatinine Ratio 14 (6-26); Blood Urea Nitrogen 9 mg/dL (6-20); Calcium 7.7 mg/dL (8.6-10.3); Carbon Dioxide 42 mEq/L (23-29); Chloride 84 mEq/L (98-107); Glucose 344 mg/dL (70-105); Osmolality,Calculated 292 (280-300); Phosphorous 2.2 mg/dL (2.7-4.5); Potassium 4.1 mEq/L (3.5-5.1); Sodium 135 mEq/L (136-145); eGFR For African Americans > 60 (> 60); eGFR For Non-African Americans > 60 (> 60)
[2020-02-20 22:40] LABS: Troponin I 0.04 ng/mL (< 0.04)
[2020-02-20] MEDS ORDERED: *HR* Dextrose 50 % in Water (Vial) 50 ML VIAL IVP PRN (23:10)
[2020-02-20] MEDS ORDERED: Dextrose Gel 15 GM/37.5 ML TUBE PO PRN ×2 (23:10)
[2020-02-20] MEDS ORDERED: Acetaminophen 325 MG TABLET PO PRN (23:14)
[2020-02-20] MEDS ORDERED: NON-FORMULARY MEDICATION 1 EACH EACH (Quetiapine Fumarate [Seroquel] 400 MG) PO SCH (23:15)
[2020-02-20] MEDS ORDERED: NON-FORMULARY MEDICATION 1 EACH EACH (Fluticasone/Umeclidin/Vilanter [Trelegy Ellipta 100- IH SCH (23:30)
[2020-02-20] MEDS ORDERED: *HR* Warfarin 2 MG TABLET PO ONE (23:40)
[2020-02-21] MEDS ORDERED: Ipratropium/Albuterol Neb 3 ML IH SCH
[2020-02-21] MEDS: Nicotine 21 MG PATCH.TD24 TD SCH ×2 (00:22→10:35)
[2020-02-21] MEDS: Insulin DETEMIR 100 UNIT/ML X5UNITS SQ SCH ×2 (00:23→21:10)
[2020-02-21] MEDS: Insulin LISPRO 300 UNITS/3 ML VIAL SQ SCH ×10 (00:24→21:11)
[2020-02-21] MEDS: 0.9 % Sodium Chloride 1,000 ML IVC SCH ×4 (00:25→23:44)
[2020-02-21 01:24] LABS: Hematocrit 27.5 % (35.3-44.9); Immature Granulocytes % 0.3 % (0-4); Lymphocytes # 0.9 K/mcL (0.6-4.6); Lymphocytes % 9.7 %; Mean Corpuscular HGB Conc 29.1 g/dL (31.6-35.5); Mean Corpuscular Hemoglobin 30.1 pg (28.0-33.3); Mean Corpuscular Volume 103.4 fL (83.0-100.0); Mean Platelet Volume 8.4 fL (9.4-12.4); Monocytes # 0.5 K/mcL (0.0-1.3); Monocytes % 5.1 %; Neutrophils # 8.2 K/mcL (1.6-8.9); Nucleated Red Blood Cells 0.2 /100 WBC (0); Platelet Count 545 K/mcL (140-400); Red Blood Count 2.66 M/mcL (3.82-4.97); Red Cell Distribution Width 15.5 % (11.5-14.5); Segmented Neutrophils % 84.9 %; White Blood Count 9.7 K/mcL (4.3-11.1)
[2020-02-21 01:27] LABS: INR 1.6; Prothrombin Time 18.7 Seconds (9.4-12.1)
[2020-02-21 02:01] LABS: Alanine Aminotransferase 23 Units/L (7-52); Albumin 3.1 g/dL (3.5-5.7); Albumin/Globulin Ratio 1.2 (1.1-2.2); Alkaline Phosphatase 84 Units/L (34-104); Aspartate Amino Transferase 14 Units/L (13-39); BUN/Creatinine Ratio 15 (6-26); Bilirubin,Total 0.2 mg/dL (0.3-1.0); Blood Urea Nitrogen 8 mg/dL (6-20); Carbon Dioxide > 45 mEq/L (23-29); Chloride 88 mEq/L (98-107); Globulin 2.5 g/dL (2.4-3.5); Glucose 161 mg/dL (70-105); Magnesium 2.8 mg/dL (1.6-2.6); Osmolality,Calculated 288 (280-300); Phosphorous 1.8 mg/dL (2.7-4.5); Potassium 3.6 mEq/L (3.5-5.1); Sodium 138 mEq/L (136-145); Total Protein 5.6 g/dL (6.4-8.9); Troponin I 0.06 ng/mL (< 0.04); eGFR For African Americans > 60 (> 60); eGFR For Non-African Americans > 60 (> 60)
[2020-02-21] MEDS ORDERED: QUEtiapine Fumarate 100 MG TABLET PO ONE (03:03)
[2020-02-21] MEDS: Albuterol 2.5 MG/3 ML NEBULIZER IH SCH ×7 (03:56→23:53)
[2020-02-21 06:22] LABS: VBG HCO3 48 mEq/L (21-27); VBG PCO2 92 mmHg (41-51); VBG PH 7.32 pH Units (7.32-7.42); VBG PO2 61 mmHg (25-50)
[2020-02-21 06:40] LABS: Phosphorous 3.5 mg/dL (2.7-4.5)
[2020-02-21 06:44] LABS: Troponin I 0.04 ng/mL (< 0.04)
[2020-02-21] MEDS: Budesonide/Formoterol 160/4.5 1 PUFF INH IH SCH ×2 (08:39→20:40)
[2020-02-21] MEDS: Tiotropium 18 MCG inhalation IH SCH (08:39)
[2020-02-21] MEDS ORDERED: *HR* Acetylcysteine 20% 600 MG/3 ML ORAL SYRINGE PO SCH (09:00)
[2020-02-21 09:31] LABS: VBG HCO3 45 mEq/L (21-27); VBG PCO2 83 mmHg (41-51); VBG PH 7.34 pH Units (7.32-7.42); VBG PO2 203 mmHg (25-50)
[2020-02-21 09:53] LABS: Estimated Average Glucose 240 mg/dl
[2020-02-21] MEDS ORDERED: 0.9 % Sodium Chloride 500 ML IV ONE (10:36)
[2020-02-21] MEDS: Metoprolol XL (24 HR) Succ 50 MG TAB.ER.24H PO SCH (10:36)
[2020-02-21] MEDS: predniSONE 10 MG TABLET PO SCH (10:47)
[2020-02-21] MEDS ORDERED: Doxycycline 100 MG CAPSULE PO SCH (11:00)
[2020-02-21] MEDS: levoFLOXacin 750 MG TABLET PO SCH (13:00)
[2020-02-21] MEDS: *HR* Acetylcysteine 20% 600 MG/3 ML ORAL SYRINGE PO SCH ×2 (13:26→21:10)
[2020-02-21] MEDS ORDERED: Warfarin perPT PO PRN (18:00)
[2020-02-21] MEDS ORDERED: *HR* Warfarin 4 MG TABLET PO ONE ×2 (18:00)
[2020-02-21] MEDS ORDERED: Doxycycline 100 MG in 0.9 % Sodium Chloride 100 ML IVPB SCH (18:00)
[2020-02-21] MEDS: QUEtiapine Fumarate 100 MG TABLET PO SCH (21:09)
[2020-02-21] MEDS: QUEtiapine Fumarate 300 MG TABLET PO SCH (21:09)
[2020-02-22 02:13] LABS: Basophils % 0.1 %; Eosinophils % 0.1 %; Hematocrit 23.7 % (35.3-44.9); Hemoglobin 6.8 g/dL (11.5-15.4); Immature Granulocytes % 0.6 % (0-4); Lymphocytes # 0.9 K/mcL (0.6-4.6); Lymphocytes % 11.1 %; Mean Corpuscular HGB Conc 28.7 g/dL (31.6-35.5); Mean Corpuscular Hemoglobin 31.1 pg (28.0-33.3); Mean Corpuscular Volume 108.2 fL (83.0-100.0); Mean Platelet Volume 8.7 fL (9.4-12.4); Monocytes # 0.6 K/mcL (0.0-1.3); Monocytes % 7.4 %; Neutrophils # 6.8 K/mcL (1.6-8.9); Platelet Count 397 K/mcL (140-400); Red Blood Count 2.19 M/mcL (3.82-4.97); Red Cell Distribution Width 15.8 % (11.5-14.5); Segmented Neutrophils % 80.7 %; White Blood Count 8.5 K/mcL (4.3-11.1)
[2020-02-22 02:17] LABS: INR 1.7; Prothrombin Time 19.6 Seconds (9.4-12.1)
[2020-02-22 02:31] LABS: BUN/Creatinine Ratio 32 (6-26); Blood Urea Nitrogen 12 mg/dL (6-20); Calcium 8.3 mg/dL (8.6-10.3); Carbon Dioxide 38 mEq/L (23-29); Chloride 101 mEq/L (98-107); Glucose 49 mg/dL (70-105); Magnesium 1.9 mg/dL (1.6-2.6); Osmolality,Calculated 289 (280-300); Potassium 4.3 mEq/L (3.5-5.1); Sodium 141 mEq/L (136-145); eGFR For African Americans > 60 (> 60); eGFR For Non-African Americans > 60 (> 60)
[2020-02-22 02:47] LABS: Platelet Estimate Normal (Normal)
[2020-02-22 02:48] LABS: Hypochromasia Present (Not Present)
[2020-02-22] MEDS: Albuterol 2.5 MG/3 ML NEBULIZER IH SCH ×6 (05:01→23:51)
[2020-02-22 06:06] LABS: Hematocrit 25.7 % (35.3-44.9); Hemoglobin 7.1 g/dL (11.5-15.4)
[2020-02-22] MEDS: Insulin LISPRO 300 UNITS/3 ML VIAL SQ SCH ×4 (09:06→22:38)
[2020-02-22] MEDS: levoFLOXacin 750 MG TABLET PO SCH (09:47)
[2020-02-22] MEDS: predniSONE 10 MG TABLET PO SCH (09:47)
[2020-02-22] MEDS: *HR* Acetylcysteine 20% 600 MG/3 ML ORAL SYRINGE PO SCH ×2 (09:48→21:02)
[2020-02-22] MEDS: Nicotine 21 MG PATCH.TD24 TD SCH (09:49)
[2020-02-22] MEDS: Metoprolol XL (24 HR) Succ 50 MG TAB.ER.24H PO SCH (10:13)
[2020-02-22] MEDS: Budesonide/Formoterol 160/4.5 1 PUFF INH IH SCH ×2 (10:19→20:31)
[2020-02-22] MEDS: Tiotropium 18 MCG inhalation IH SCH (10:19)
[2020-02-22] MEDS: Metoprolol XL (24 HR) Succ 25 MG TAB.ER.24H PO SCH (10:33)
[2020-02-22 13:04] LABS: Hematocrit 26.3 % (35.3-44.9); Hemoglobin 7.5 g/dL (11.5-15.4)
[2020-02-22] MEDS ORDERED: *HR* Warfarin 4 MG TABLET PO ONE (18:00)
[2020-02-22] MEDS ORDERED: Insulin DETEMIR 100 UNIT/ML X5UNITS SQ SCH (21:00)
[2020-02-22] MEDS: QUEtiapine Fumarate 300 MG TABLET PO SCH (21:03)
[2020-02-22] MEDS: QUEtiapine Fumarate 100 MG TABLET PO SCH (21:06)
[2020-02-23] MEDS: Albuterol 2.5 MG/3 ML NEBULIZER IH SCH ×5 (04:20→20:33)
[2020-02-23 05:29] LABS: INR 1.7; Prothrombin Time 19.6 Seconds (9.4-12.1)
[2020-02-23 05:31] LABS: Eosinophils % 0.3 %; Hematocrit 25.3 % (35.3-44.9); Immature Granulocytes % 0.5 % (0-4); Lymphocytes # 1.4 K/mcL (0.6-4.6); Lymphocytes % 14.6 %; Mean Corpuscular HGB Conc 27.7 g/dL (31.6-35.5); Mean Corpuscular Hemoglobin 29.4 pg (28.0-33.3); Mean Corpuscular Volume 106.3 fL (83.0-100.0); Mean Platelet Volume 8.5 fL (9.4-12.4); Monocytes # 0.7 K/mcL (0.0-1.3); Neutrophils # 7.2 K/mcL (1.6-8.9); Platelet Count 415 K/mcL (140-400); Red Blood Count 2.38 M/mcL (3.82-4.97); Red Cell Distribution Width 15.9 % (11.5-14.5); Segmented Neutrophils % 77.6 %; White Blood Count 9.3 K/mcL (4.3-11.1)
[2020-02-23 05:46] LABS: BUN/Creatinine Ratio 27 (6-26); Blood Urea Nitrogen 15 mg/dL (6-20); Calcium 9.5 mg/dL (8.6-10.3); Carbon Dioxide 39 mEq/L (23-29); Chloride 98 mEq/L (98-107); Glucose 139 mg/dL (70-105); Osmolality,Calculated 291 (280-300); Potassium 4.8 mEq/L (3.5-5.1); Sodium 139 mEq/L (136-145); eGFR For African Americans > 60 (> 60); eGFR For Non-African Americans > 60 (> 60)
[2020-02-23 06:02] LABS: Hypochromasia Present (Not Present)
[2020-02-23 06:03] LABS: Stomatocytes 1+ (Not Present)
[2020-02-23] MEDS: Budesonide/Formoterol 160/4.5 1 PUFF INH IH SCH ×2 (07:25→20:32)
[2020-02-23] MEDS: Tiotropium 18 MCG inhalation IH SCH (07:25)
[2020-02-23] MEDS: Insulin LISPRO 300 UNITS/3 ML VIAL SQ SCH ×4 (07:45→21:33)
[2020-02-23] MEDS: levoFLOXacin 750 MG TABLET PO SCH (07:54)
[2020-02-23] MEDS: Metoprolol XL (24 HR) Succ 25 MG TAB.ER.24H PO SCH (07:54)
[2020-02-23] MEDS: *HR* Acetylcysteine 20% 600 MG/3 ML ORAL SYRINGE PO SCH ×2 (07:55→20:00)
[2020-02-23] MEDS: predniSONE 10 MG TABLET PO SCH (07:55)
[2020-02-23] MEDS: Nicotine 21 MG PATCH.TD24 TD SCH (07:55)
[2020-02-23] MEDS ORDERED: Metoprolol XL (24 HR) Succ 25 MG TAB.ER.24H PO SCH (09:00)
[2020-02-23] MEDS ORDERED: Furosemide 20 MG/2 ML VIAL IVP ONE (13:19)
[2020-02-23 14:57] LABS: Hematocrit 26.8 % (35.3-44.9); Hemoglobin 7.5 g/dL (11.5-15.4)
[2020-02-23 19:53] LABS: Hematocrit 27.8 % (35.3-44.9)
[2020-02-23] MEDS: QUEtiapine Fumarate 300 MG TABLET PO SCH ×2 (20:00→22:56)
[2020-02-23] MEDS: QUEtiapine Fumarate 100 MG TABLET PO SCH (22:54)
[2020-02-24] MEDS: Albuterol 2.5 MG/3 ML NEBULIZER IH SCH ×8 (00:04→23:42)
[2020-02-24] MEDS ORDERED: Levalbuterol Neb 1.25 MG/3 ML ONE (00:06)
[2020-02-24] MEDS ORDERED: *HR* Metoprolol 5 MG/5 ML VIAL IVP ONE (00:19)
[2020-02-24] MEDS ORDERED: Levalbuterol Neb 1.25 MG/3 ML IH ONE (00:22)
[2020-02-24] MEDS ORDERED: 0.9 % Sodium Chloride 250 ML ONE (00:34)
[2020-02-24] MEDS ORDERED: 0.9 % Sodium Chloride 250 ML IVC ONE (00:34)
[2020-02-24 00:48] LABS: ABG Base Excess 20 mEq/L (-2 to 3); ABG HCO3 47 mEq/L (21-27); ABG Oxygen Saturation 88 % (95-98); ABG PCO2 73 mmHg (35-45); ABG PH 7.42 pH Units (7.32-7.45); ABG PO2 57 mmHg (85-104); ABG TCO2 50 mEq/L (20-26)
[2020-02-24] MEDS: D5% in Water 1,000 ML IVC PRN ×2 (00:54→20:59)
[2020-02-24 02:07] LABS: INR 1.9
[2020-02-24 02:16] LABS: % Iron Saturation 8 % (15-50); Iron 29 mcg/dL (50-170); Transferrin 244 mg/dL (203-362)
[2020-02-24] MEDS: Tiotropium 18 MCG inhalation IH SCH (07:24)
[2020-02-24] MEDS: Budesonide/Formoterol 160/4.5 1 PUFF INH IH SCH ×2 (07:24→19:32)
[2020-02-24] MEDS: Metoprolol XL (24 HR) Succ 25 MG TAB.ER.24H PO SCH (07:46)
[2020-02-24] MEDS: levoFLOXacin 750 MG TABLET PO SCH (07:49)
[2020-02-24] MEDS: predniSONE 10 MG TABLET PO SCH (07:49)
[2020-02-24] MEDS: Nicotine 21 MG PATCH.TD24 TD SCH (07:49)
[2020-02-24] MEDS: Insulin LISPRO 300 UNITS/3 ML VIAL SQ SCH ×4 (07:53→20:19)
[2020-02-24 08:35] LABS: Hematocrit 26.7 % (35.3-44.9); Hemoglobin 7.6 g/dL (11.5-15.4)
[2020-02-24 08:51] LABS: Magnesium 1.4 mg/dL (1.6-2.6); Phosphorous 4.5 mg/dL (2.7-4.5)
[2020-02-24 09:08] LABS: BUN/Creatinine Ratio 24 (6-26); Blood Urea Nitrogen 12 mg/dL (6-20); Carbon Dioxide > 45 mEq/L (23-29); Chloride 92 mEq/L (98-107); Glucose 193 mg/dL (70-105); Osmolality,Calculated 291 (280-300); Potassium 4.5 mEq/L (3.5-5.1); Sodium 138 mEq/L (136-145); eGFR For African Americans > 60 (> 60); eGFR For Non-African Americans > 60 (> 60)
[2020-02-24] MEDS: *HR* Acetylcysteine 20% 600 MG/3 ML ORAL SYRINGE PO SCH ×2 (09:34→20:18)
[2020-02-24] MEDS ORDERED: Magnesium Sulfate 1 GM/102 ML PIGGYBACK IVPB ONE (11:37)
[2020-02-24] MEDS ORDERED: SODIUM CHLORIDE/NAHCO3/KCL/PEG 4,000 ML SOLN.RECON PO ONE (17:00)
[2020-02-24] MEDS: QUEtiapine Fumarate 100 MG TABLET PO SCH (20:19)
[2020-02-24] MEDS: QUEtiapine Fumarate 300 MG TABLET PO SCH (20:19)
[2020-02-25] MEDS: Albuterol 2.5 MG/3 ML NEBULIZER IH SCH ×3 (04:09→10:43)
[2020-02-25] MEDS ORDERED: Morphine Sulfate 2 MG/ML SYRINGE IVP ONE (04:30)
[2020-02-25 06:45] LABS: Basophils % 0.1 %; Eosinophils % 0.4 %; Hemoglobin 7.4 g/dL (11.5-15.4); Immature Granulocytes % 0.7 % (0-4); Mean Platelet Volume 8.6 fL (9.4-12.4)
[2020-02-25 06:47] LABS: Hematocrit 25.4 % (35.3-44.9); Lymphocytes # 1.5 K/mcL (0.6-4.6); Lymphocytes % 20.3 %; Mean Corpuscular HGB Conc 29.1 g/dL (31.6-35.5); Mean Corpuscular Hemoglobin 30.6 pg (28.0-33.3); Monocytes # 0.8 K/mcL (0.0-1.3); Monocytes % 10.7 %; Neutrophils # 5.1 K/mcL (1.6-8.9); Platelet Count 392 K/mcL (140-400); Red Blood Count 2.42 M/mcL (3.82-4.97); Red Cell Distribution Width 15.8 % (11.5-14.5); Segmented Neutrophils % 67.8 %; White Blood Count 7.5 K/mcL (4.3-11.1)
[2020-02-25 07:04] LABS: INR 1.4; Prothrombin Time 16.3 Seconds (9.4-12.1)
[2020-02-25 07:13] LABS: BUN/Creatinine Ratio 10 (6-26); Blood Urea Nitrogen 5 mg/dL (6-20); Calcium 9.5 mg/dL (8.6-10.3); Carbon Dioxide 34 mEq/L (23-29); Chloride 95 mEq/L (98-107); Glucose 111 mg/dL (70-105); Magnesium 1.5 mg/dL (1.6-2.6); Osmolality,Calculated 280 (280-300); Phosphorous 2.9 mg/dL (2.7-4.5); Potassium 4.1 mEq/L (3.5-5.1); Sodium 136 mEq/L (136-145); eGFR For African Americans > 60 (> 60); eGFR For Non-African Americans > 60 (> 60)
[2020-02-25] MEDS ORDERED: Lidocaine -MPF 2% 2 ML VIAL ONE (07:43)
[2020-02-25 07:50] VITALS: BP 126/60
[2020-02-25] MEDS ORDERED: Magnesium Sulfate 1 GM/102 ML PIGGYBACK IVPB ONE (07:56)
[2020-02-25] MEDS ORDERED: 0.9 % Sodium Chloride 500 ML IVC SCH (08:00)
[2020-02-25] MEDS ORDERED: *HR* Metoprolol 5 MG/5 ML VIAL IVP ONE (08:20)
[2020-02-25] MEDS ORDERED: predniSONE 20 MG TABLET PO SCH (09:00)
[2020-02-25] MEDS: levoFLOXacin 750 MG TABLET PO SCH (09:23)
[2020-02-25] MEDS: Metoprolol XL (24 HR) Succ 25 MG TAB.ER.24H PO SCH (09:28)
[2020-02-25] MEDS: Budesonide/Formoterol 160/4.5 1 PUFF INH IH SCH (10:42)
[2020-02-25] MEDS: Tiotropium 18 MCG inhalation IH SCH (10:42)
== END 2020-02-25 13:45 | disposition home health service (06) | DRG 190 ==
LOC: 2NNU → SUATTDRO 21:01 → 3ANU 02-23 23:49
PROVIDERS: ADMIT Internal Medicine; ATTEND Internal Medicine
PROC: ENDOEBX (2020-02-25 08:00)
PROC: ENDOCCB (2020-02-25 08:00)

== ENCOUNTER 2020-09-12 09:22 | Inpatient (IN) ==
[2020-09-12] MEDS ORDERED: Naloxone 0.4 MG/ML INJ IVP PRN (11:58)
[2020-09-12] MEDS ORDERED: Dextrose Gel 15 GM/37.5 ML TUBE PO PRN ×2 (11:59)
[2020-09-12] MEDS ORDERED: D5% in Water 1,000 ML IVC PRN (11:59)
[2020-09-12] MEDS ORDERED: *HR* Dextrose 50 % in Water (Vial) 50 ML VIAL IVP PRN (11:59)
[2020-09-12] MEDS: Insulin LISPRO 300 UNITS/3 ML VIAL SUBQ SCH ×4 (13:01→23:36)
[2020-09-12] MEDS ORDERED: Fluticasone Propionate Nasal 50 MCG/SPRAY BOTTLE NS PRN (14:36)
[2020-09-12] MEDS ORDERED: Baclofen 10 MG TABLET PO PRN (14:36)
[2020-09-12 15:03] LABS: Estimated Average Glucose 160 mg/dl; Hemoglobin A1C 7.2 %
[2020-09-12] MEDS ORDERED: Ipratropium/Albuterol Neb 3 ML IH PRN (16:00)
[2020-09-12] MEDS ORDERED: Warfarin perPT PO PRN (18:00)
[2020-09-12] MEDS ORDERED: *HR* Heparin 5,000 UNIT/ML VIAL SQ SCH (18:00)
[2020-09-12] MEDS ORDERED: *HR* Enoxaparin 80 MG/0.8 ML SYRINGE SQ SCH (18:00)
[2020-09-12] MEDS ORDERED: *HR* Warfarin 4 MG TABLET PO ONE (18:00)
[2020-09-12] MEDS: *HR* Enoxaparin 100 MG/ML SYRINGE SQ SCH (18:12)
[2020-09-12] MEDS: *HR* LORazepam 0.5 MG TABLET PO SCH (20:29)
[2020-09-13 02:22] LABS: INR 1.3; Prothrombin Time 14.5 Seconds (9.4-12.1)
[2020-09-13 02:25] LABS: Basophils % 0.1 %; Immature Granulocytes % 0.2 % (0-4); Mean Platelet Volume 9.1 fL (9.4-12.4); Red Cell Distribution Width 15.7 % (11.5-14.5)
[2020-09-13 02:26] LABS: Hematocrit 28.6 % (35.3-44.9); Hemoglobin 7.8 g/dL (11.5-15.4); Lymphocytes # 1.4 K/mcL (0.6-4.6); Lymphocytes % 14.3 %; Mean Corpuscular HGB Conc 27.3 g/dL (31.6-35.5); Mean Corpuscular Volume 91.7 fL (83.0-100.0); Monocytes # 0.7 K/mcL (0.0-1.3); Monocytes % 7.4 %; Neutrophils # 7.5 K/mcL (1.6-8.9); Platelet Count 648 K/mcL (140-400); Red Blood Count 3.12 M/mcL (3.82-4.97); White Blood Count 9.6 K/mcL (4.3-11.1)
[2020-09-13 02:47] LABS: BUN/Creatinine Ratio 20 (6-26); Blood Urea Nitrogen 11 mg/dL (6-20); Calcium 8.7 mg/dL (8.6-10.3); Carbon Dioxide 34 mEq/L (23-29); Chloride 98 mEq/L (98-107); Glucose 102 mg/dL (70-105); Osmolality,Calculated 280 (280-300); Phosphorous 2.6 mg/dL (2.7-4.5); Potassium 4.7 mEq/L (3.5-5.1); Sodium 135 mEq/L (136-145); eGFR For African Americans > 60 (> 60); eGFR For Non-African Americans > 60 (> 60)
[2020-09-13 02:50] LABS: Platelet Estimate Increased (Normal)
[2020-09-13 03:08] LABS: Ferritin 14 ng/mL (10-120); Iron < 10 mcg/dL (50-170); Transferrin 253 mg/dL (203-362)
[2020-09-13 03:09] LABS: Folate 4.1 ng/mL (3.0-16.0)
[2020-09-13] MEDS: Insulin LISPRO 300 UNITS/3 ML VIAL SUBQ SCH ×5 (04:39→22:01)
[2020-09-13] MEDS: *HR* Enoxaparin 100 MG/ML SYRINGE SQ SCH (05:19)
[2020-09-13] MEDS: Cholecalciferol (D-3) 1,000 UNIT (25MCG) TABLET PO SCH (07:18)
[2020-09-13] MEDS: *HR* LORazepam 0.5 MG TABLET PO SCH ×2 (07:18→22:02)
[2020-09-13] MEDS: Metoprolol XL (24 HR) Succ 50 MG TAB.ER.24H PO SCH (07:18)
[2020-09-13] MEDS ORDERED: Tiotropium 10 INH DOSE IH ONE (07:56)
[2020-09-13] MEDS: Tiotropium 10 INH DOSE IH SCH (07:58)
[2020-09-13] MEDS ORDERED: NON-FORMULARY MEDICATION 1 EACH EACH (Calcium Carbonate/Vitamin D3 [Calcium 600 + Vit D Ta PO SCH (09:00)
[2020-09-13] MEDS: *HR* HYDROcodone/Acet 5/325 mg TABLET PO PRN ×2 (10:30→17:02)
[2020-09-13] MEDS ORDERED: Iron Sucrose Complex 400 MG in 0.9 % Sodium Chloride 250 ML IVPB ONE (15:57)
[2020-09-13] MEDS ORDERED: *HR* Warfarin 4 MG TABLET PO ONE (18:00)
[2020-09-13] MEDS ORDERED: Ondansetron 4 MG/2 ML VIAL IVP PRN (22:57)
[2020-09-14 03:52] LABS: INR 1.2; Lymphocytes % 4.8 %; Monocytes % 3.9 %; Prothrombin Time 14.2 Seconds (9.4-12.1)
[2020-09-14 03:53] LABS: Basophils % 0.2 %; Eosinophils % 0.1 %; Hematocrit 30.5 % (35.3-44.9); Hemoglobin 8.5 g/dL (11.5-15.4); Immature Granulocytes % 0.4 % (0-4); Mean Corpuscular HGB Conc 27.9 g/dL (31.6-35.5); Mean Corpuscular Hemoglobin 25.4 pg (28.0-33.3); Mean Corpuscular Volume 91.3 fL (83.0-100.0); Mean Platelet Volume 9.4 fL (9.4-12.4); Monocytes # 0.8 K/mcL (0.0-1.3); Platelet Count 745 K/mcL (140-400); Red Blood Count 3.34 M/mcL (3.82-4.97); Red Cell Distribution Width 15.7 % (11.5-14.5); Segmented Neutrophils % 90.6 %
[2020-09-14 04:07] LABS: BUN/Creatinine Ratio 34 (6-26); Blood Urea Nitrogen 19 mg/dL (6-20); Calcium 8.8 mg/dL (8.6-10.3); Carbon Dioxide 33 mEq/L (23-29); Chloride 97 mEq/L (98-107); Glucose 270 mg/dL (70-105); Osmolality,Calculated 290 (280-300); Potassium 4.8 mEq/L (3.5-5.1); Sodium 134 mEq/L (136-145); eGFR For African Americans > 60 (> 60); eGFR For Non-African Americans > 60 (> 60)
[2020-09-14 04:11] LABS: Neutrophils # 18.1 K/mcL (1.6-8.9)
[2020-09-14 05:01] LABS: Platelet Estimate Increased (Normal)
[2020-09-14] MEDS: *HR* Enoxaparin 40 MG/0.4 ML SYRINGE SQ SCH ×2 (05:03→16:25)
[2020-09-14] MEDS: *HR* HYDROcodone/Acet 5/325 mg TABLET PO PRN ×2 (05:08→19:07)
[2020-09-14] MEDS: Tiotropium 10 INH DOSE IH SCH (07:12)
[2020-09-14] MEDS: Insulin LISPRO 300 UNITS/3 ML VIAL SUBQ SCH ×4 (07:41→20:34)
[2020-09-14] MEDS: *HR* LORazepam 0.5 MG TABLET PO SCH ×2 (07:41→20:35)
[2020-09-14] MEDS: Cholecalciferol (D-3) 1,000 UNIT (25MCG) TABLET PO SCH (07:41)
[2020-09-14] MEDS: Metoprolol XL (24 HR) Succ 50 MG TAB.ER.24H PO SCH (07:41)
[2020-09-14 12:24] LABS: Bilirubin,Urine Negative (Negative); Blood,Urine Negative (Negative); Clarity,Urine Turbid (Clear); Color,Urine Light-Orange (Yellow); Glucose,Urine (UA) >=1000 mg/dL (Normal); Hyaline Casts,Urine Few per lpf (None Seen); Ketones,Urine Trace mg/dL (Negative); Leukocyte Esterase,Urine Moderate (Negative); Mucus,Urine Few per lpf (None-Few); Nitrite,Urine Negative (Negative); PH,Urine 5.5 pH Units (5.0-8.0); Protein,Urine Trace mg/dL (Neg-Trace); Specific Gravity,Urine 1.026 (1.010-1.025); Squamous Epithelial Cell,Urine Few per hpf (None-Few); Urobilinogen,Urine Normal (Normal); WBC,Urine 30-50 per hpf (0-3)
[2020-09-14] MEDS: levoFLOXacin 750 MG/150 ML 750 MG/150 ML BAG IVPB SCH (12:53)
[2020-09-14] MEDS ORDERED: *HR* Warfarin 7.5 MG TABLET PO ONE (18:00)
[2020-09-14] MEDS: Insulin DETEMIR 100 UNIT/ML X5UNITS SUBQ SCH (20:34)
[2020-09-15 04:49] LABS: Lymphocytes % 18.1 %; Mean Platelet Volume 8.9 fL (9.4-12.4); Red Cell Distribution Width 15.9 % (11.5-14.5)
[2020-09-15 04:50] LABS: Basophils % 0.2 %; Eosinophils % 0.1 %; Hematocrit 21.8 % (35.3-44.9); Immature Granulocytes % 0.6 % (0-4); Lymphocytes # 1.8 K/mcL (0.6-4.6); Mean Corpuscular HGB Conc 27.5 g/dL (31.6-35.5); Mean Corpuscular Hemoglobin 25.2 pg (28.0-33.3); Mean Corpuscular Volume 91.6 fL (83.0-100.0); Monocytes # 1.1 K/mcL (0.0-1.3); Monocytes % 10.4 %; Neutrophils # 7.1 K/mcL (1.6-8.9); Nucleated Red Blood Cells 0.2 /100 WBC (0); Platelet Count 569 K/mcL (140-400); Red Blood Count 2.38 M/mcL (3.82-4.97); Segmented Neutrophils % 70.6 %; White Blood Count 10.1 K/mcL (4.3-11.1)
[2020-09-15 04:52] LABS: INR 1.8
[2020-09-15 05:08] LABS: BUN/Creatinine Ratio 40 (6-26); Blood Urea Nitrogen 17 mg/dL (6-20); Carbon Dioxide 37 mEq/L (23-29); Chloride 99 mEq/L (98-107); Glucose 67 mg/dL (70-105); Osmolality,Calculated 284 (280-300); Potassium 3.8 mEq/L (3.5-5.1); Sodium 137 mEq/L (136-145); eGFR For African Americans > 60 (> 60); eGFR For Non-African Americans > 60 (> 60)
[2020-09-15] MEDS: *HR* Enoxaparin 40 MG/0.4 ML SYRINGE SQ SCH (05:28)
[2020-09-15] MEDS ORDERED: 0.9 % Sodium Chloride 250 ML IVC SCH (05:30)
[2020-09-15] MEDS: Insulin LISPRO 300 UNITS/3 ML VIAL SUBQ SCH ×4 (07:21→20:05)
[2020-09-15] MEDS: Metoprolol XL (24 HR) Succ 50 MG TAB.ER.24H PO SCH (07:44)
[2020-09-15] MEDS: Cholecalciferol (D-3) 1,000 UNIT (25MCG) TABLET PO SCH (07:44)
[2020-09-15] MEDS: *HR* LORazepam 0.5 MG TABLET PO SCH ×2 (07:44→20:03)
[2020-09-15 09:14] LABS: Basophils % 0.2 %; Eosinophils % 0.1 %; Hematocrit 23.1 % (35.3-44.9); Mean Platelet Volume 9.2 fL (9.4-12.4); Red Cell Distribution Width 15.9 % (11.5-14.5)
[2020-09-15 09:15] LABS: Hemoglobin 6.1 g/dL (11.5-15.4); Lymphocytes # 1.5 K/mcL (0.6-4.6); Lymphocytes % 12.5 %; Mean Corpuscular HGB Conc 26.4 g/dL (31.6-35.5); Mean Corpuscular Hemoglobin 24.2 pg (28.0-33.3); Mean Corpuscular Volume 91.7 fL (83.0-100.0); Monocytes # 1.2 K/mcL (0.0-1.3); Monocytes % 9.9 %; Neutrophils # 9.1 K/mcL (1.6-8.9); Nucleated Red Blood Cells 0.5 /100 WBC (0); Platelet Count 590 K/mcL (140-400); Red Blood Count 2.52 M/mcL (3.82-4.97); Segmented Neutrophils % 76.3 %; White Blood Count 11.9 K/mcL (4.3-11.1)
[2020-09-15 09:45] LABS: Hypochromasia Present (Not Present)
[2020-09-15] MEDS: Tiotropium 10 INH DOSE IH SCH (10:53)
[2020-09-15] MEDS: levoFLOXacin 750 MG/150 ML 750 MG/150 ML BAG IVPB SCH (15:06)
[2020-09-15] MEDS: *HR* HYDROcodone/Acet 5/325 mg TABLET PO PRN ×2 (15:07→21:47)
[2020-09-15 15:25] LABS: Hematocrit 28.5 % (35.3-44.9)
[2020-09-15 15:28] LABS: Hemoglobin 8.1 g/dL (11.5-15.4)
[2020-09-15] MEDS: Pantoprazole 40 MG VIAL IVP SCH (17:56)
[2020-09-15] MEDS: Insulin DETEMIR 100 UNIT/ML X5UNITS SUBQ SCH (20:05)
[2020-09-16 01:13] LABS: Hematocrit 26.6 % (35.3-44.9); Hemoglobin 7.8 g/dL (11.5-15.4)
[2020-09-16 01:21] LABS: INR 2.1; Prothrombin Time 23.6 Seconds (9.4-12.1)
[2020-09-16 01:31] LABS: BUN/Creatinine Ratio 30 (6-26); Blood Urea Nitrogen 12 mg/dL (6-20); Carbon Dioxide 38 mEq/L (23-29); Chloride 96 mEq/L (98-107); Glucose 175 mg/dL (70-105); Osmolality,Calculated 284 (280-300); Sodium 135 mEq/L (136-145); eGFR For African Americans > 60 (> 60); eGFR For Non-African Americans > 60 (> 60)
[2020-09-16] MEDS: Pantoprazole 40 MG VIAL IVP SCH ×2 (05:25→17:45)
[2020-09-16] MEDS: Insulin LISPRO 300 UNITS/3 ML VIAL SUBQ SCH ×4 (07:19→20:35)
[2020-09-16] MEDS ORDERED: Lidocaine -MPF 2% 2 ML VIAL ONE (07:24)
[2020-09-16] MEDS ORDERED: *HR* Metoprolol 5 MG/5 ML VIAL IVP ONE (08:48)
[2020-09-16] MEDS: Cholecalciferol (D-3) 1,000 UNIT (25MCG) TABLET PO SCH (09:19)
[2020-09-16] MEDS: Metoprolol XL (24 HR) Succ 50 MG TAB.ER.24H PO SCH (09:19)
[2020-09-16] MEDS: *HR* LORazepam 0.5 MG TABLET PO SCH ×2 (09:20→19:28)
[2020-09-16] MEDS ORDERED: Doxycycline 100 MG CAPSULE PO SCH (09:45)
[2020-09-16] MEDS: Tiotropium 10 INH DOSE IH SCH (11:09)
[2020-09-16] MEDS: *HR* HYDROcodone/Acet 5/325 mg TABLET PO PRN ×2 (11:22→17:35)
[2020-09-16] MEDS: Sulfamethoxazole/Trimeth DS 1 EACH TABLET PO SCH (19:27)
[2020-09-16] MEDS ORDERED: Insulin DETEMIR 100 UNIT/ML X5UNITS SUBQ SCH (21:00)
[2020-09-17 01:14] LABS: Hematocrit 27.3 % (35.3-44.9); Hemoglobin 7.7 g/dL (11.5-15.4)
[2020-09-17 01:18] LABS: INR 1.6; Prothrombin Time 17.7 Seconds (9.4-12.1)
[2020-09-17 01:42] LABS: BUN/Creatinine Ratio 17 (6-26); Blood Urea Nitrogen 6 mg/dL (6-20); Calcium 9.4 mg/dL (8.6-10.3); Carbon Dioxide 40 mEq/L (23-29); Chloride 96 mEq/L (98-107); Glucose 82 mg/dL (70-105); Osmolality,Calculated 281 (280-300); Potassium 4.5 mEq/L (3.5-5.1); Sodium 137 mEq/L (136-145); eGFR For African Americans > 60 (> 60); eGFR For Non-African Americans > 60 (> 60)
[2020-09-17] MEDS: *HR* HYDROcodone/Acet 5/325 mg TABLET PO PRN ×2 (02:56→12:05)
[2020-09-17] MEDS: Pantoprazole 40 MG VIAL IVP SCH (06:25)
[2020-09-17] MEDS: Insulin LISPRO 300 UNITS/3 ML VIAL SUBQ SCH ×2 (07:12→11:04)
[2020-09-17] MEDS: *HR* LORazepam 0.5 MG TABLET PO SCH (07:38)
[2020-09-17] MEDS: Metoprolol XL (24 HR) Succ 50 MG TAB.ER.24H PO SCH (07:39)
[2020-09-17] MEDS: Sulfamethoxazole/Trimeth DS 1 EACH TABLET PO SCH (07:39)
[2020-09-17] MEDS: Cholecalciferol (D-3) 1,000 UNIT (25MCG) TABLET PO SCH (07:39)
[2020-09-17] MEDS: Tiotropium 10 INH DOSE IH SCH (07:47)
[2020-09-17 10:33] VITALS: BP 116/70
== END 2020-09-17 13:23 | disposition home or self-care (01) | DRG 917 ==
LOC: CDU 11:25 → SUATTDRO 11:25 → INTOOBSV 11:25 → 2ANU 19:23
PROVIDERS: ADMIT Internal Medicine; ATTEND Family Medicine